=== PATIENT | male | born 1940 | race Caucasian/White ===

== ENCOUNTER → 2017-08-07 | Outpatient (CLI) | payer MEDICARE, BC ==
--- NOTE | 2017-08-07 12:59 | MR ---
EXAMINATION TYPE: MR shoulder LT wo con DATE OF EXAM: 08/07/2017 COMPARISON: NONE HISTORY: left shoulder pain TECHNIQUE: Multiplanar, multisequence imaging of the left shoulder is performed without contrast. FINDINGS: Rotator Cuff: Postop changes are present, susceptibility artifact is present about the left shoulder. There is a full-thickness tear present supraspinatus tendon with retraction to the level of the acro mion. Infraspinatus tendon shows abnormal loss of thickness, fluid signal is present, the tendon appe ars attenuated fluid signal courses back along the musculotendinous junction Acromioclavicular Joint: Arthropathy of the acromioclavicular joint causes mass effect on the musculo tendinous junction of supraspinatus Glenohumeral Joint: Suspect some arthropathy changes. Labrum: Some linear increased signal present at the posterior aspect of the inferior portion of the g lenoid labrum is noted, axial image 9 and 10, difficult to exclude a labral tear, there is some local fluid present Biceps Tendon: Fluid signal is present along the long head of biceps tendon shows a normal position i n the bicipital groove Bone marrow signal: Abnormal marrow signal at the site of patient's prior surgery within the humeral head. Other: The acromion shows an irregular appearance possibly due to prior surgery IMPRESSION: Postop change with recurrent full-thickness supraspinatus tendon tear with retraction, additional fin dings above. Difficult to exclude a labral tear.
== END | disposition home or self-care (01) ==
LOC: RADMRIMAIN 08:50
PROVIDERS: ATTEND Internal Medicine
DX: M75.102 Unspecified rotator cuff tear or rupture of left shoulder, not specified as traumatic (principal); M12.812 Other specific arthropathies, not elsewhere classified, left shoulder; Z98.890 Other specified postprocedural states

== ENCOUNTER 2017-12-29 07:51 | Emergency (ER) | payer OTHER, MEDICARE, BC ==
[2017-12-29] MEDS ORDERED: DIPH,PERTUS(ACELL)TETVAC-LF 0.5 ML VIAL IM ONE (08:07)
[2017-12-29 08:08] VITALS: TEMP 97.7
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
[2017-12-29 09:15] VITALS: PULSE 69; RESP 18
[2017-12-29] MEDS ORDERED: HYDROmorphone 1 MG/ML 1 ML SYRINGE IVP STA ×2 (09:35→12:48)
[2017-12-29] MEDS ORDERED: ONDANSETRON 4 MG/2 ML VIAL IVP STA ×2 (09:35→13:09)
[2017-12-29 11:31] LABS: Partial Thromboplastin Time 22.1 sec (22.0-30.0); Prothrombin Time 10.2 sec (9.0-12.0)
[2017-12-29 11:33] LABS: ALT 53 U/L (21-72); AST 43 U/L (17-59); Albumin 3.9 g/dL (3.5-5.0); Alkaline Phosphatase 68 U/L (38-126); Anion Gap 8 mmol/L; Blood Urea Nitrogen 27 mg/dL (9-20); Calcium 9.2 mg/dL (8.4-10.2); Carbon Dioxide 25 mmol/L (22-30); Chloride 106 mmol/L (98-107); Glucose 151 mg/dL (74-99); Potassium 4.5 mmol/L (3.5-5.1); Sodium 139 mmol/L (137-145); Total Bilirubin 0.5 mg/dL (0.2-1.3); Total Protein 6.6 g/dL (6.3-8.2)
[2017-12-29 11:37] LABS: Basophils % (A) 0 %; Eosinophils % (A) 0 %; Lymphocytes # (A) 0.7 k/uL (1.0-4.8); Lymphocytes % (A) 4 %; MCH 33.4 pg (25.0-35.0); MCHC 34.2 g/dL (31.0-37.0); MCV 97.8 fL (80.0-100.0); Mean Platelet Volume 6.9; Monocytes # (A) 0.6 k/uL (0-1.0); Monocytes % (A) 4 %; Neutrophils # (A) 14.2 k/uL (1.3-7.7); Neutrophils % (A) 91 %; Platelet Count 230 k/uL (150-450); RDW 12.6 % (11.5-15.5); WBC 15.5 k/uL (3.8-10.6)
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
[2017-12-29 12:27] VITALS: BP 130/74
== END 2017-12-29 13:21 | disposition short-term general hospital (02) ==
LOC: EC 07:51
DX: S32.401A Unspecified fracture of right acetabulum, initial encounter for closed fracture (principal); S01.01XA Laceration without foreign body of scalp, initial encounter; M19.90 Unspecified osteoarthritis, unspecified site; Z87.891 Personal history of nicotine dependence; Z88.5 Allergy status to narcotic agent; Z79.82 Long term (current) use of aspirin; Z79.899 Other long term (current) drug therapy; Z96.649 Presence of unspecified artificial hip joint; Z23 Encounter for immunization; V49.49XA Driver injured in collision with other motor vehicles in traffic accident, initial encounter; Y92.410 Unspecified street and highway as the place of occurrence of the external cause
CPT/HCPCS: 36415; 80053; 85025; 85610; 85730; 73502; 71045; 72192; 72125; 70450; 71250; 90715; 99285; 96374; 96375; 96376 ×2; 90471; J2405; J1170

== ENCOUNTER 2018-01-14 09:50 | Day surgery (SDC) | payer BC, MEDICARE, OTHER ==
[2018-01-13 09:46] VITALS: BMI 25.7
[~2018-01-14 09:50] MED LIST: DEXAMETHASONE SOD PHOSPHATE 4 MG/ML 1 ML VIAL IV ONE; FAMOTIDINE 20 MG/2 ML VIAL IV ONE; HYDROmorphone 1 MG/ML 1 ML SYRINGE IVP PRN; LACTATED RINGERS 1,000 ML IV SCH; ONDANSETRON 4 MG/2 ML VIAL IVP ONE; ceFAZolin 1,000 MG in DEXTROSE/WATER 1 50ML.BAG IV ONE
[2018-01-14] MEDS: OXYMETAZOLINE 0.05% NASL SPRAY 1 SPRAY BOTTLE NASAL ONE ×5 (11:10→11:30)
[2018-01-14] MEDS ORDERED: DEXAMETHASONE SOD PHOS (MDV) 100 MG/10 ML VIAL ONE (12:00)
[2018-01-14] MEDS ORDERED: fentaNYL (PF) 50 MCG/ML 2 ML AMP ONE (12:00)
[2018-01-14] MEDS ORDERED: LIDOCAINE 1% INJ 10MG/ML (20 ML MDV) ONE (12:00)
[2018-01-14] MEDS ORDERED: MIDAZOLAM 2 MG/2 ML VIAL ONE (12:00)
[2018-01-14] MEDS ORDERED: SUCCINYLCHOLINE CHLORIDE VIAL 200 MG/10 ML VIAL IV ONE (12:00)
[2018-01-14] MEDS ORDERED: ePHEDrine SULFATE/0.9% NACL/PF 50 MG/5 ML SYRINGE IV ONE (12:00)
[2018-01-14] MEDS ORDERED: PROPOFOL 10 MG/ML 20 ML VIAL IV ONE (12:00)
[2018-01-14] MEDS ORDERED: LIDOCAINE 1%-EPI 1:100,000 30 ML VIAL SUBMUCOSAL ONE ×2 (12:20)
[2018-01-14] MEDS ORDERED: BACITRACIN OINT 1 EACH PACKET TOPICAL ONE (12:35)
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
[2018-01-14 13:04] VITALS: TEMP 97.9
[2018-01-14 13:32] VITALS: RESP 18
[2018-01-14 14:36] VITALS: BP 128/79; PULSE 67
== END 2018-01-14 15:09 | disposition home or self-care (01) ==
LOC: OR 09:50
PROVIDERS: ATTEND Otolaryngology
DX: J34.2 Deviated nasal septum (principal); S02.2XXA Fracture of nasal bones, initial encounter for closed fracture; V89.2XXA Person injured in unspecified motor-vehicle accident, traffic, initial encounter; S32.9XXD Fracture of unspecified parts of lumbosacral spine and pelvis, subsequent encounter for fracture with routine healing; S82.009D Unspecified fracture of unspecified patella, subsequent encounter for closed fracture with routine healing; V89.2XXD Person injured in unspecified motor-vehicle accident, traffic, subsequent encounter; I10 Essential (primary) hypertension; K21.9 Gastro-esophageal reflux disease without esophagitis; Z79.01 Long term (current) use of anticoagulants; Z79.891 Long term (current) use of opiate analgesic; Z79.899 Other long term (current) drug therapy; Z88.5 Allergy status to narcotic agent; Z87.891 Personal history of nicotine dependence
CPT/HCPCS: 88300; 30520; 21320; J2250; J0330; J1100 ×2; J2405; J2001; J3010; J0690; J2704

== ENCOUNTER → 2018-12-28 | Outpatient (CLI) | payer MEDICARE, BC ==
--- NOTE | 2018-12-28 10:35 | XR ---
EXAMINATION TYPE: XR chest 2V DATE OF EXAM: 12/28/2018 COMPARISON: 12/29/2017 HISTORY: Prostate cancer.. TECHNIQUE: Frontal and lateral views of the chest are obtained. FINDINGS: There is no focal air space opacity, pleural effusion, or pneumothorax seen. Moderate mult ilevel degenerative changes of the spine. Chronic left basilar subsegmental atelectasis. The cardiac silhouette size is within normal limits. The osseous structures are intact. Postsurgical changes of the shoulders from prior rotator cuff repair. IMPRESSION: No acute cardiopulmonary process.
--- NOTE | 2018-12-28 12:56 | XR ---
EXAMINATION TYPE: XR lumbosacral spine min 4V DATE OF EXAM: 12/28/2018 CLINICAL HISTORY: Low back pain with history of prostate cancer TECHNIQUE: Frontal, lateral, and oblique images of the lumbar spine are obtained. COMPARISON: None FINDINGS: Multilevel facet arthropathy is seen with intervertebral disc space narrowing and small ant erior osteophytes. Alignment is maintained other than a grade 1 anterolisthesis of L4 on L5, 2 mm of anterolisthesis. Postsurgical changes are partially visualized of the hips and sacroiliac joints. Obl ique images demonstrate neural foraminal narrowing on the left at L1-L2, L2-L3, and L3-L4 as well as on the right at L2-L3, L3-4 and L4-5. The pedicles of L1 and L2 appear slightly hyperdense and in thi s patient with a history of prostate cancer nuclear medicine bone scan is recommended. IMPRESSION: 1. No acute fracture is seen in the lumbar spine. 2. Slightly hyperdense pedicles of L1 and L2. In this patient with a history of prostate cancer nucle ar medicine bone scan is recommended. 3. Advanced multilevel degenerative disc disease of the lumbar spine with grade 1 anterolisthesis of L4 on L5, likely on a degenerative basis.
--- NOTE | 2018-12-28 13:07 | XR ---
EXAMINATION TYPE: XR thoracic spine complete DATE OF EXAM: 12/28/2018 CLINICAL HISTORY: Back pain. History of prostate cancer. TECHNIQUE: Frontal, lateral, and swimmer's view of thoracic spine are obtained. COMPARISON: None. FINDINGS: Thoracic spine show satisfactory alignment without evidence of acute fracture or dislocatio n. Vertebral body heights are preserved. Intervertebral disc space narrowing is seen at multiple lev els with multilevel anterior osteophytes and endplate sclerosis. There is a question mild compression deformity of T11 vertebral obliquity from slight dextroscoliotic curvature of the thoracic spine. Ve rtebral body height loss would be approximately 10%. Visualized ribs are unremarkable. IMPRESSION: 1. Question very mild compression deformity of T11. Correlate with point tenderness. If clinical exam is equivocal MRI could be performed to evaluate for bone marrow edema. 2. Moderate degenerative disc disease of the lumbar spine and slight dextro scoliosis.
--- NOTE | 2018-12-28 16:03 | XR ---
EXAMINATION TYPE: XR abdomen complete w decub DATE OF EXAM: 12/28/2018 COMPARISON: NONE HISTORY: Low back pain, prostate cancer, abdominal pain TECHNIQUE: Supine, upright, and decubitus views of the abdomen were obtained FINDINGS: Prominent loop of centralized small bowel is mildly enlarged measuring 3.6 cm. Prominent va lvulae conniventes a in the mid left abdomen and left lower quadrant. Moderate degree colonic fecal s tasis. Remainder of the loops of bowel remain nondilated. Fecal stasis is seen within the rectum. Pos tsurgical changes of the right hip and pelvis are noted. Generalized osseous demineralization and deg enerative changes of the osseous structures. Lung bases are well aerated. No pneumoperitoneum. On the upright view of the previously seen mildly dilated loop of small bowel appears transient. IMPRESSION: Moderate degree colonic fecal stasis and overall ileus.
== END | disposition home or self-care (01) ==
LOC: RADXRMAIN 09:14
PROVIDERS: ATTEND Internal Medicine
DX: M43.16 Spondylolisthesis, lumbar region (principal); M51.36 Other intervertebral disc degeneration, lumbar region; K59.8 Other specified functional intestinal disorders; Z85.46 Personal history of malignant neoplasm of prostate
CPT/HCPCS: 71046; 72072; 72110; 74021

== ENCOUNTER → 2018-12-30 | Outpatient (CLI) | payer MEDICARE, BC ==
--- NOTE | 2018-12-30 16:44 | NM ---
EXAMINATION TYPE: NM bone scan whole body DATE OF EXAM: 12/30/2018 COMPARISON: NONE HISTORY: Back pain, Z 85.46 Delayed whole-body scanning was performed following the injection of 24.0 mCi Tc 99m MDP. Images wer e acquired 3 hours post injection. FINDINGS: There is some focal increased radiotracer accumulation within the left posterior T12 pedicle, the jamil ateral T11 pedicles, the right posterior T10 pedicle. Consider MRI for additional evaluation of this region. Some uptake is at the sternoclavicular junctions likely degenerative in nature. Some mild increased u ptake is at the bilateral acetabulum likely related to some degenerative change. Photopenic defects a t the right hip compatible with a prosthesis. IMPRESSION: 1. Mild uptake within the lower thoracic spine pedicles. Additional evaluation with plain films is re commended. If this is inconclusive, consider MRI for additional evaluation.
== END | disposition home or self-care (01) ==
LOC: RADNMMAIN 10:21
PROVIDERS: ATTEND Internal Medicine
DX: M54.5 Low back pain (principal); Z85.46 Personal history of malignant neoplasm of prostate
CPT/HCPCS: 78306; A9503

== ENCOUNTER 2018-12-31 09:42 | Day surgery (SDC) | payer MEDICARE, BC ==
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
[2018-12-29 16:06] VITALS: BMI 25.0
[~2018-12-31 09:42] MED LIST changes: +DEXAMETHASONE SOD PHOSPHATE 10 MG/ML 1 ML VIAL IV ONE; -DEXAMETHASONE SOD PHOSPHATE 4 MG/ML 1 ML VIAL IV ONE; -FAMOTIDINE 20 MG/2 ML VIAL IV ONE; +HYDROmorphone 0.5 MG/0.5 ML SYRINGE IVP PRN; -HYDROmorphone 1 MG/ML 1 ML SYRINGE IVP PRN; -ceFAZolin 1,000 MG in DEXTROSE/WATER 1 50ML.BAG IV ONE
[2018-12-31] MEDS ORDERED: LACTATED RINGERS 1,000 ML IV ONE (10:08)
[2018-12-31] MEDS ORDERED: LIDOCAINE 1% 20 ML VIAL (10MG/ML) FOR IV START INTRADERMA ONE (10:10)
[2018-12-31] MEDS ORDERED: LIDOCAINE 1% INJ 10MG/ML (20 ML MDV) ONE (11:47)
[2018-12-31] MEDS ORDERED: PROPOFOL 10 MG/ML 20 ML VIAL IV ONE (11:47)
[2018-12-31] MEDS ORDERED: fentaNYL (PF) 50 MCG/ML 2 ML AMP ONE (11:47)
[2018-12-31] MEDS ORDERED: MIDAZOLAM 2 MG/2 ML VIAL ONE (11:47)
[2018-12-31] MEDS ORDERED: LIDOCAINE 2% INJ 20 MG/ML SQ ONE ×3 (12:07→12:19)
[2018-12-31 12:46] VITALS: TEMP 97.4
[2018-12-31 13:03] VITALS: RESP 16
[2018-12-31 13:58] VITALS: BP 143/77; PULSE 54
--- NOTE | 2018-12-31 19:46 | P.OP ---
Date of Procedure: 12/31/18 Preoperative Diagnosis: prostate cancer Postoperative Diagnosis: same Procedure(s) Performed: Transrectal ultrasound and SpaceOaR placement Implants: SPacerOaR gel Anesthesia: DANETTEA Surgeon: Sid Jin Estimated Blood Loss (ml): 5 Condition: stable Disposition: PACU Indications for Procedure: Mr. Chavis is a 78-year-old male with history of Antonio 10 prostate cancer, he elected to proceed with external beam radiation. Placement of SpaceOaR was discussed with the patient to minimize rectal toxicity. He agreed to proceed with the procedure. I discussed with him the risk of bleeding infection and injury to nearby organs. I also discussed the risk of anesthesia with him. He understood all the risks and agreed to proceed with the procedure Operative Findings: good separation between between Denovillers fascia the rectum Description of Procedure: The patient was taken to the operating room and placed in the dorsolithotomy position, with his legs supported in Jonas stirrups. The external genitalia was prepped and draped sterilely. The BK transrectal ultrasound probe was placed intrarectally. The prostate was imaged. The probe was then placed within the stabilizing stand. A spinal needle was advanced under ultrasonic guidance to the level of the urogenital diaphragm, and lidocaine was used to infiltrate the tissues as the needle was withdrawn. Next, the SpaceOAR needle was passed through the midline of the perineum, 1-2 cm anterior to the anal opening. The needle was slowly advanced under ultrasonic guidance until the needle tip was located within the fat plane between the prostate and rectum, at the level of the mid prostate gland. The needle was confirmed to be midline on the axial imaging. A small amount of normal saline was injected for hydrodissection. Next, the SpaceOAR components were mixed and loaded into the Y connector per protocol. The Y connector was then connected to the needle, and the components were injected slowly over a course of approximately 12 seconds. A total of 10 ml was injected. Significant distance was created between the prostate and rectum, as desired. It should be noted that at no point was there any concern of rectal perforation. The needle was withdrawn, as well as the transrectal ultrasound probe, and the procedure was terminated. The patient tolerated the procedure well and was taken to the recovery room in stable condition.
== END 2018-12-31 14:06 | disposition home or self-care (01) ==
LOC: OR 09:42
PROVIDERS: ATTEND Urology
DX: C61 Malignant neoplasm of prostate (principal); N40.0 Benign prostatic hyperplasia without lower urinary tract symptoms; I10 Essential (primary) hypertension; F41.9 Anxiety disorder, unspecified; M19.90 Unspecified osteoarthritis, unspecified site; Z96.641 Presence of right artificial hip joint; Z98.41 Cataract extraction status, right eye; Z98.890 Other specified postprocedural states; Z87.891 Personal history of nicotine dependence; Z79.899 Other long term (current) drug therapy; Z88.5 Allergy status to narcotic agent
CPT/HCPCS: 55874; J2001 ×2; J2250; J1100; J0690; J2405; J3010; J2704

== ENCOUNTER → 2019-01-13 | Outpatient (CLI) | payer MEDICARE, BC ==
--- NOTE | 2019-01-13 23:39 | MR ---
EXAMINATION TYPE: MR thoracic spine wo/w con DATE OF EXAM: 01/13/2019 COMPARISON: None HISTORY: Mid back pain, Abnoramal Bone Scan, Prostate Ca CONTRAST: Standard multiplanar, multisequence MRI departmental protocol utilizing 7.5 mL intravenous Gadavist g adolinium contrast. FINDINGS: The thoracic vertebra have fairly normal alignment. There is no compression fracture. There is no significant disc space narrowing. There is no thoracic paraspinal mass. On the T1 and T2 image s there is increased signal in T9 and T10 vertebra that probably relates to fatty marrow replacement. I see no definite pathologic enhancement. There is no pathologic disc enhancement. Thoracic spinal cord has normal signal pattern. There is no edema. There is posterior mild cervical d isc herniation and spur formation at C4-5. There is adequate spinal canal and no significant spinal s tenosis. IMPRESSION: Findings are consistent with some variable fatty marrow replacement. I do not see evidence of metasta tic disease. Mild spondylotic changes in the thoracic and cervical spine. There is hypertrophic right side lateral bridging osteophyte formation in the mid thoracic spine.
== END | disposition home or self-care (01) ==
LOC: RADMRIMAIN 20:05
PROVIDERS: ATTEND Internal Medicine
DX: M47.814 Spondylosis without myelopathy or radiculopathy, thoracic region (principal); M25.78 Osteophyte, vertebrae
CPT/HCPCS: 72157; A9585

== ENCOUNTER → 2019-02-18 | Outpatient (CLI) | payer MEDICARE, BC | END | disposition home or self-care (01) | LOC: LABWHC1 08:29 | PROVIDERS: ATTEND Radiology Radiation Oncology | DX: C61 Malignant neoplasm of prostate (principal); Z87.891 Personal history of nicotine dependence; Z79.818 Long term (current) use of other agents affecting estrogen receptors and estrogen levels | CPT/HCPCS: 36415; 84153 ==

== ENCOUNTER → 2019-08-25 | Outpatient (CLI) | payer MEDICARE, BC ==
--- NOTE | 2019-08-25 14:14 | NM ---
EXAMINATION TYPE: NM bone scan whole body DATE OF EXAM: 08/25/2019 COMPARISON: MRI 12/27/2018, bone scan 12/30/2018 HISTORY: Pain, prostate cancer Delayed whole-body scanning was performed following the injection of 22.8 mCi Tc 99m MDP. Images acq uired 3 hours post injection. FINDINGS: There is uptake involving the shoulders, knees and feet likely post arthritic. Photopenic defect righ t hip suggestive of previous surgery. Faint uptake throughout the thoracic spine and lower lumbar spine likely degenerative. Some uptake is at the sternoclavicular junctions likely degenerative in nature. There is mild increased uptake is at the bilateral acetabulum likely related to some degenerative daysi nge. Photopenic defects at the right hip compatible with a prosthesis. IMPRESSION: 1. Mild intensity uptake within the vertebral column again noted most likely degenerative.
== END | disposition home or self-care (01) ==
LOC: RADNMMAIN 09:44
PROVIDERS: ATTEND Internal Medicine
DX: C61 Malignant neoplasm of prostate (principal)
CPT/HCPCS: 78306; A9503

== ENCOUNTER → 2021-05-24 | Outpatient (CLI) | payer MEDICARE, BC ==
--- NOTE | 2021-05-24 14:27 | ECHOS ---
STRESS ECHOCARDIOGRAM INDICATIONS: Hyperhidrosis BASELINE HEART RATE: 93 BASELINE BLOOD PRESSURE: 133/80 MAXIMUM HEART RATE: 150 MAXIMUM BLOOD PRESSURE: 193/89 85% MPHR: 118 100% MPHR: 139 METS: 4.4 MAXIMUM STAGE REACHED: II TOTAL EXERCISE TIME: 4:09 RESULTS: Baseline EKG revealed normal sinus rhythm without significant ST-T changes. Patient walked on standard Arley protocol for 4 minutes 9 seconds, achieved a maximal heart rate of 150 beats per minute which is well above 85% of predicted maximal. He developed fatigue and shortness of breath but did not have angina. EKG did not reveal any ST-segment changes to indicate ischemia. By EKG criteria, this is a negative stress test with limited exercise capacity. Baseline echo images revealed normal wall motion and wall thickening of all segments. At peak exercise, there was good augmentation of left ventricular wall motion and wall thickening of all segments, suggesting that there is no evidence of stress-induced ischemia on this study. FINAL IMPRESSION: 1. Limited exercise capacity with a negative stress test by EKG criteria. 2. Normal stress echocardiogram without evidence of ischemia. MMODL / IJN: [id number] /
== END | disposition home or self-care (01) ==
LOC: RADNMMAIN 08:57
PROVIDERS: ATTEND Internal Medicine
DX: R61 Generalized hyperhidrosis (principal)
CPT/HCPCS: 93351

== ENCOUNTER 2022-01-21 17:14 | Emergency (ER) | payer OTHER, MEDICARE, BC ==
[2022-01-21 17:23] VITALS: TEMP 98
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
[2022-01-21] MEDS ORDERED: HYDROcodone/APAP 7.5-325MG 1 EACH TAB PO ONE (19:01)
[2022-01-21] MEDS ORDERED: GELATIN SPONGE,ABSORB (SMALL) 1 EACH SPONGE TOPICAL STA (19:12)
[2022-01-21] MEDS ORDERED: GELATIN SPONGE,ABSORB (LARGE) 1 EACH SPONGE TOPICAL STA (19:12)
[2022-01-21] MEDS ORDERED: DIPH,PERTUS(ACELL)TETVAC-LF 0.5 ML VIAL IM ONE (19:14)
[2022-01-21 20:17] VITALS: BP 147/82; PULSE 94; RESP 18
== END 2022-01-21 20:17 | disposition home or self-care (01) ==
LOC: EC 17:14
DX: R07.82 Intercostal pain (principal); Z23 Encounter for immunization; I10 Essential (primary) hypertension; M19.90 Unspecified osteoarthritis, unspecified site; F41.9 Anxiety disorder, unspecified; Z88.5 Allergy status to narcotic agent; Z79.899 Other long term (current) drug therapy; V49.50XA Passenger injured in collision with unspecified motor vehicles in traffic accident, initial encounter
CPT/HCPCS: 70450; 71250; 72125; 74176; 90471; 90715; 99284

== ENCOUNTER 2022-03-15 23:17 | Observation (INO) | payer MEDICARE, BC ==
[2022-03-16] MEDS ORDERED: ACETAMINOPHEN IV (For NPO) 1,000 MG in SALINE 100 100ML.BAG IVPB STA (01:34)
[2022-03-16 01:55] LABS: Basophils % (A) 0 %; Eosinophils # (A) 0.2 k/uL (0-0.7); Eosinophils % (A) 3 %; HCT 36.9 % (39.0-53.0); HGB 13.1 gm/dL (13.0-17.5); Lymphocytes # (A) 0.6 k/uL (1.0-4.8); Lymphocytes % (A) 12 %; MCH 34.7 pg (25.0-35.0); MCHC 35.6 g/dL (31.0-37.0); MCV 97.6 fL (80.0-100.0); Mean Platelet Volume 7.3; Monocytes # (A) 0.4 k/uL (0-1.0); Monocytes % (A) 7 %; Neutrophils # (A) 4.1 k/uL (1.3-7.7); Neutrophils % (A) 76 %; Platelet Count 253 k/uL (150-450); RBC 3.78 m/uL (4.30-5.90); RDW 12.5 % (11.5-15.5); WBC 5.4 k/uL (3.8-10.6)
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
[2022-03-16 02:15] LABS: ALT 22 U/L (4-49); AST 24 U/L (17-59); African American GFR (CKD) >90 (>60 ml/min/1.73 sqM); Albumin 4.1 g/dL (3.5-5.0); Alkaline Phosphatase 116 U/L (38-126); Anion Gap 7 mmol/L; Blood Urea Nitrogen 21 mg/dL (9-20); C Reactive Protein 0.5 mg/dL (<1.0); Calcium 9.1 mg/dL (8.4-10.2); Carbon Dioxide 24 mmol/L (22-30); Chloride 108 mmol/L (98-107); Glucose 127 mg/dL (74-99); Non-African American GFR(CKD) >90 (>60 ml/min/1.73 sqM); Potassium 4.2 mmol/L (3.5-5.1); Sodium 139 mmol/L (137-145); Total Bilirubin 0.6 mg/dL (0.2-1.3); Total Protein 6.7 g/dL (6.3-8.2)
[2022-03-16] MEDS ORDERED: MORPHINE SULFATE 4 MG/ML SYRINGE IV STA (03:08)
[2022-03-16] MEDS ORDERED: ONDANSETRON 4 MG/2 ML VIAL IVP STA (03:08)
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
[2022-03-16] MEDS ORDERED: MORPHINE SULFATE 4 MG/ML SYRINGE IV PRN (04:08)
[2022-03-16] MEDS ORDERED: ONDANSETRON 4 MG/2 ML VIAL IVP PRN (04:08)
[2022-03-16] MEDS ORDERED: NALOXONE 0.4 MG/ML 1 ML VIAL IV PRN (04:08)
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
[2022-03-16 07:35] VITALS: RESP 16
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
[2022-03-16] MEDS ORDERED: DEXAMETHASONE SOD PHOSPHATE 10 MG/ML 1 ML VIAL IVP STA (08:35)
[2022-03-16] MEDS: HEPARIN SODIUM,PORCINE/PF 5,000 UNIT/0.5 ML SYRINGE SQ SCH ×2 (09:04→17:50)
[2022-03-16 15:22] VITALS: BP 135/72; PULSE 84; TEMP 97.9
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
== END 2022-03-16 15:37 | disposition left against medical advice (07) ==
LOC: EC 23:17 → 6NMEDSUR 03-16 04:10
PROVIDERS: ADMIT Internal Medicine; ATTEND Internal Medicine
DX: S32.040A Wedge compression fracture of fourth lumbar vertebra, initial encounter for closed fracture (principal); S32.050A Wedge compression fracture of fifth lumbar vertebra, initial encounter for closed fracture; G93.40 Encephalopathy, unspecified; M54.10 Radiculopathy, site unspecified; I10 Essential (primary) hypertension; M48.061 Spinal stenosis, lumbar region without neurogenic claudication; F41.9 Anxiety disorder, unspecified; M47.816 Spondylosis without myelopathy or radiculopathy, lumbar region; M16.12 Unilateral primary osteoarthritis, left hip; N40.0 Benign prostatic hyperplasia without lower urinary tract symptoms; Z79.899 Other long term (current) drug therapy; Z88.5 Allergy status to narcotic agent; Z96.641 Presence of right artificial hip joint; Z98.41 Cataract extraction status, right eye; Z80.9 Family history of malignant neoplasm, unspecified; Z53.29 Procedure and treatment not carried out because of patient's decision for other reasons; V49.50XA Passenger injured in collision with unspecified motor vehicles in traffic accident, initial encounter
CPT/HCPCS: 96372; 96375 ×2; 96374; 99285; 36415; 80053; 85025; 86140; 72192; 72131; G0378; J2270; J1100; J2405; J0131; J1644

== ENCOUNTER → 2022-03-18 | Outpatient (CLI) | payer MEDICARE, BC ==
--- NOTE | 2022-03-18 16:45 | MR ---
EXAMINATION TYPE: MR lumbar spine wo con DATE OF EXAM: 03/18/2022 3:45 PM COMPARISON: CT lumbar spine 03/16/[address] 01/21/2022. CLINICAL INDICATION:Male, 82 years old with history of M54.50 Low back pain; TECHNIQUE: Multi planar, multi sequence imaging was performed utilizing: T1-weighted, T2-weighted, a nd turbo inversion recovery imaging of the lumbar spine. IV Contrast: None. FINDINGS: Alignment: The lumbar vertebral bodies have preserved heights and alignment. Cord: The conus medullaris and the distal spinal cord appear unremarkable with regards to their signa l intensity and morphology. Bones/Discs: Acute/subacute fracture of the L5 vertebrae with at least 25-50% height loss which has p rogressed from 01/21/2022 and is similar 03/16/2022. High inversion recovery signal is seen within the L5 vertebrae with curvilinear low T1/T2 signal present in extending to the endplates. L4 vertebrae a lso demonstrates increase her recovery signal with curvilinear low T1/T2 signal within the L4 vertebr al body inferior anterior aspect with associated increased inversion recovery signal. Postsurgical ch anges to the sacrum. Mild retropulsion at L5 and no significant retropulsion at the L4. Scattered osteophyte formation throughout the visualized spine with facet joint arthropathy T12-L1: The disc is rounded posterior morphology without significant spinal canal stenosis. Facet mera nt arthropathy with mild neural foraminal stenosis. L1-L2: The disc is rounded posterior morphology without significant spinal canal stenosis. Facet join t arthropathy with mild neural foraminal stenosis. L2-L3: Disc bulge and facet joint arthropathy result in mild spinal canal and mild bilateral neural f oraminal stenosis. L3-L4: Disc bulge and facet joint arthropathy result in moderate spinal canal and moderate to severe bilateral neural foraminal stenosis. L4-L5: Compression fracture with retropulsion along with facet joint arthropathy results in severe sp inal canal stenosis. There is also moderate bilateral neural foraminal stenosis. L5-S1: Limited evaluation at this level secondary to metallic artifact on axial imaging. The disc is rounded posterior morphology without significant spinal canal stenosis. Facet joint arthropathy with moderate bilateral neural foraminal stenosis. Other findings: Peripelvic renal cysts are present. IMPRESSION: 1. Acute/subacute fracture of the L5 vertebrae with at least 25-50% height loss which has progressed from 01/21/2022 and is similar 03/16/2022. 2. Retropulsion at L4-L5 from the acute subacute fracture mentioned in #1 results in severe spinal c anal stenosis. 3. Acute/subacute fracture of the L4 vertebrae with 25% height loss progressed from 01/21/2022 and si milar to 03/16/2022. 4. Multilevel disc degeneration changes with moderate bilateral neural foraminal stenosis at L3-L4, L4-5 and L5-S1.
== END | disposition home or self-care (01) ==
LOC: RADMRIMAIN 14:48
PROVIDERS: ATTEND Internal Medicine
DX: S32.059A Unspecified fracture of fifth lumbar vertebra, initial encounter for closed fracture (principal); S32.049A Unspecified fracture of fourth lumbar vertebra, initial encounter for closed fracture; M51.36 Other intervertebral disc degeneration, lumbar region; M48.061 Spinal stenosis, lumbar region without neurogenic claudication; M99.73 Connective tissue and disc stenosis of intervertebral foramina of lumbar region; M47.816 Spondylosis without myelopathy or radiculopathy, lumbar region; M51.37 Other intervertebral disc degeneration, lumbosacral region
CPT/HCPCS: 72148

== ENCOUNTER → 2022-03-27 | Outpatient (CLI) | payer MEDICARE, BC ==
[2022-03-28] LABS: African American GFR (CKD) 99.2 (60.0-200.0); BUN/Creat Ratio 19.54 Ratio (12.00-20.00); Blood Urea Nitrogen 14.6 mg/dL (9.0-27.0); Calcium 9.7 mg/dL (8.7-10.3); Carbon Dioxide 22.7 mmol/L (20.0-27.5); Non-African American GFR(CKD) 85.6 (60.0-200.0); Potassium 4.1 mmol/L (3.5-5.5)
[2022-03-28 00:04] LABS: INR 0.92 (0.90-1.11); Prothrombin Time 10.4 sec (9.9-11.9)
== END | disposition home or self-care (01) ==
LOC: LABPAT 15:41
PROVIDERS: ATTEND Orthopaedic Surgery
DX: Z01.812 Encounter for preprocedural laboratory examination (principal); S32.05 Fracture of fifth lumbar vertebra; S32.040A Wedge compression fracture of fourth lumbar vertebra, initial encounter for closed fracture; M48.061 Spinal stenosis, lumbar region without neurogenic claudication; Z22.322 Carrier or suspected carrier of Methicillin resistant Staphylococcus aureus; X58.XXXA Exposure to other specified factors, initial encounter
CPT/HCPCS: 80048; 85025; 85610; 86850; 86900; 86901; 87070; 93005

== ENCOUNTER → 2022-03-28 | Outpatient (CLI) | payer MEDICARE, BC ==
[2022-03-28 18:42] LABS: Basophils # (A) 0.03 X 10*3/uL (0.00-0.10); Basophils % (A) 0.6 %; Eosinophils # (A) 0 X 10*3/uL (0.04-0.35); Eosinophils % (A) 0 %; HCT 39.1 % (39.6-50.0); HGB 13.1 g/dL (13.0-17.0); Immature Grans, Automated 0.2 %; Lymphocytes # (A) 0.55 X 10*3/uL (0.90-5.00); Lymphocytes % (A) 11.6 %; MCH 34.2 pg (27.0-32.0); MCHC 33.5 g/dL (32.0-37.0); MCV 102.1 fL (80.0-97.0); Mean Platelet Volume 10.2 fL (9.5-12.2); Monocytes # (A) 0.46 X 10*3/uL (0.20-1.00); Monocytes % (A) 9.7 %; NRBC Per 100 WBC 0 /100 WBCS (0.0-0.0); Neutrophils # (A) 3.69 X 10*3/uL (1.80-7.70); Neutrophils % (A) 77.9 %; Platelet Count 264 X 10*3/uL (140-440); RBC 3.83 X 10*6/uL (4.40-5.60); RDW 12.5 % (11.5-14.5); WBC 4.74 X 10*3/uL (4.50-10.00)
== END | disposition home or self-care (01) ==
LOC: LABPAT 11:25
PROVIDERS: ATTEND Orthopaedic Surgery
DX: Z01.812 Encounter for preprocedural laboratory examination (principal); Z22.322 Carrier or suspected carrier of Methicillin resistant Staphylococcus aureus; S32.05 Fracture of fifth lumbar vertebra; S32.040A Wedge compression fracture of fourth lumbar vertebra, initial encounter for closed fracture; M48.061 Spinal stenosis, lumbar region without neurogenic claudication; X58.XXXA Exposure to other specified factors, initial encounter
CPT/HCPCS: 85025

== ENCOUNTER 2022-04-02 06:07 | Day surgery (SDC) | payer OTHER, MEDICARE, BC ==
[2022-03-29 15:59] VITALS: BMI 25.1
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
[~2022-04-02 06:07] MED LIST changes: +ACETAMINOPHEN TAB 500 MG TAB PO PRN; -DEXAMETHASONE SOD PHOSPHATE 10 MG/ML 1 ML VIAL IV ONE; +DEXAMETHASONE SOD PHOSPHATE 4 MG/ML 1 ML VIAL IV ONE; +GABAPENTIN 300 MG CAP PO PRN; -HYDROmorphone 0.5 MG/0.5 ML SYRINGE IVP PRN; -LACTATED RINGERS 1,000 ML IV SCH; +LIDOCAINE 1% (10MG/ML) FOR IV START INTRADERMA PRN; +MIDAZOLAM 2 MG/2 ML VIAL IV PRN; -ONDANSETRON 4 MG/2 ML VIAL IVP ONE; +ONDANSETRON 4 MG/2 ML VIAL IVP PRN; +TRANEXAMIC ACID IN NACL,ISO-OS 1,000 MG in SALINE 1 100ML.BAG IVPB PRN
[2022-04-02] MEDS: LACTATED RINGERS 1,000 ML IV SCH (06:50)
--- NOTE | 2022-04-02 06:56 | P.PN ---
Progress Note - Text Progress Note Date: 04/02/22 Spoke with and pt this AM. H&P updated. Discussed the procedure. They have decided with their family that they do not want the larger procedure and just want to proceed with the L5 kyphoplasty. This is reasonable. I discussed with them again that this will not at all address his instability, stenosis, radiculopathy or other issues of his low back but simply address the L5 vertebral body and whatever pain is coming from this area. They understand. I reiterated that in a fracture like this, Stability is preferred with screws and we can do it minimally invasive. They understand and still do not want this at this time. We discussed all the risks and benefits of this decision at length including the need for more surgery, continued pain, instability and further deterioration of his neurological status and they understand and are willing to assume these risks as well as all of the other risks of surgery.
[2022-04-02] MEDS ORDERED: HYDROmorphone 0.5 MG/0.5 ML SYRINGE IVP PRN ×2 (07:00→08:27)
[2022-04-02] MEDS ORDERED: LIDOCAINE 2% INJ 20 MG/ML (2 ML VIAL) ONE (07:23)
[2022-04-02] MEDS ORDERED: MIDAZOLAM 2 MG/2 ML VIAL ONE (07:23)
[2022-04-02] MEDS ORDERED: PROPOFOL 10 MG/ML 20 ML VIAL IV ONE (07:23)
[2022-04-02] MEDS ORDERED: PHENYLEPHRINE-0.9% NACL SYG 1,000 MCG/10 ML SYRINGE ONE (07:23)
[2022-04-02] MEDS ORDERED: SUCCINYLCHOLINE CHLORIDE 200 MG/10 ML VIAL IV ONE (07:23)
[2022-04-02] MEDS ORDERED: fentaNYL (PF) 50 MCG/ML 2 ML AMP ONE (07:23)
[2022-04-02] MEDS ORDERED: IOPAMIDOL M200 10 ML VIAL MISCELLANE ONE (07:29)
[2022-04-02] MEDS ORDERED: BUPIVACAIN-EPI 0.25%-1:200,000 30 ML VIAL SQ ONE (07:29)
--- NOTE | 2022-04-02 08:15 | P.OP ---
Date of Procedure: 04/02/22 Preoperative Diagnosis: 1. L5 compression fracture with burst component, no posterior involvement 2. Low back pain 3. L3-S1 stenosis, severe with radiculopathy 4. L3-S1 spondylolisthesis, with spondylosis Postoperative Diagnosis: 1. L5 compression fracture with burst component, no posterior involvement 2. Low back pain 3. L3-S1 stenosis, severe with radiculopathy 4. L3-S1 spondylolisthesis, with spondylosis Procedure(s) Performed: 1. L5 kyphoplasty with biopsy Implants: -[place] [employer] Anesthesia: GETA Surgeon: Primitivo Villarreal Market Manager #1: Filemon Sheikh (Was present and assisted with all aspects of the case from positioning to dressing placement) Pathology: other (L5 vertebral body) Condition: stable Disposition: PACU Indications for Procedure: Mr. Chavis is presenting for evaluation of low back pain. It was my pleasure to have seen and examined Mr. Chavis. In our visit today we have had a chance to go over subjective complaints, physical examination findings and treatments including the natural course history without intervention and various interventional options. The patients imaging demonstrates: XRay Lumbar Multiview (AP, Lateral, Flexion, Extension) with AP pelvis; 5 views taken at [facility] on 03/27/22 of Lumbar Spine and Pelvis: X-rays reviewed with the patient and this demonstrates postsurgical changes of the pelvis with a transiliac transsacral screw in S1. Patient also has a superior pubic rami screw on the right-hand side on with a total hip previously. Lumbar portion of film shows severe compression with burst component fracture of L5 this is an AO type AIV burst. There is a compression fracture of L4 as well as noted of the inferior endplate which is 20% compressed. There is severe spondylosis at both of these levels. Flattening of the normal lumbar lordosis is noted as well secondary to these fractures CT [facility] 03[facility]16[facility]22 of Lumbar Spine: Images reviewed with the pt Again demonstrated AO A4 burst fracture of L5 with L4 inferior endplate fracture, compression type 30% compressed. Retropulsion of the fractured fragments of L5 cause stenosis as well as stenosis of L3-S1 region due to chronic changes. No other fractures noted at this time. No lesions. MRI scancompleted [facility] from03/18/2022 of Lumbar Spine: MRI is reviewed with patient and demonstrates again in a O type AIV burst fracture of L5 with retropulsion and stenosis. There is severe spondylosis with grade 1 anterolisthesis noted of L4 and L5. There is an acute compression fracture of L4 of the inferior endplate which is 20% to 30% compressed. There is edema within the L4 and L5 bodies which is noted on STIR imaging. There is severe stenosis noted at L3 4 and L4 5 secondary to ligamentum flavum hypertrophy disc bulging fracture and listhesis. There is flattening of normal lumbar lordosis. And the sacral segment there is artifact due to the previous screw placement within the sacrum however this does not of secure visualization of the L3 through all 5 S1 region. There is turbulent flow through this area with nerve rootlets experiencing this secondary to the severe stenosis related. No other fractures noted no other lesions. On physical exam, Mr. Chavis demonstrates significantly restricted lumbar ROM due to pain along with bilateral lower extremity radiculopathy. Furthermore the the patient does also report bilateral lower extremity weakness with L4-S1 dermatomal deficits causing significant debility, severely limited functional testing, and gait instability causing him to use a cane for ambulation assistance. I have explained to the patient that as their condition progresses it will cause further neurological deficits and eventual paralysis. Based on the patients imaging, physical exam, and the rapid progression and disabling nature of their symptoms, at this time I recommend surgery in the form or a: lumbar (L3-S1) decompression and fusion with L5 kyphoplasty. I discussed the risk and benefits of this procedure at length with Mr. Chavis. The patient agreed to considered pursuing the procedure abovementioned. Prior to surgery, she should follow up with her PCP (Cardio, ID, IM etc) for clearance. Questions were invited and answered, and the patient wishes to proceed as outlined below. Currently, I am recommendin.lumbar (L3-S1) decompression and fusion with L5 kyphoplasty The patient and family did not want the stabilization and decompression at this time. And they understood the risks and benefits of this as outlined in risk review and previous notes pre op. They wish to continue with just the kyphoplasty Description of Procedure: L5 Kyphoplasty The patient was seen and examined in the preoperative area. All preoperative protocols were followed. Informed consent was obtained, risks and benefits of the procedure were discussed at length. Risks including bleeding infection damage to the surrounding tissue and risk of re-operation were discussed with the patient. Risk of anesthesia up to and including was discussed with the patient. These are outlined in the risk review. They were willing to accept these risks and all the risks of surgery. The patient was given a weight-based dose of antibiotics in the form of 2 g Ancef. The patient was seen and evaluated by the anesthesia team who deemed them fit for surgery. The site was marked, the patient was willing to proceed with the procedure. The patient was transferred to the operative suite by the Department of anesthesia. They were then drifted off to sleep by the department anesthesia and GETA was performed. The patient tolerated this well. Once confirmation of lines and ventilation the patient was transferred to a prone Perico table very carefully. All bony prominences including wrists, elbows, axilla, chest, hips, and thighs, and feet were padded very well. Special attention was paid to the genitalia, and these were padded accordingly. SCDs were placed on bilateral lower extremities and were connected. Arms were well padded and placed on arm boards up and out in the 90/90 position. Once in position, again we confirmed good ventilation capabilities and that lines were running appropriately. The patients Lumbar spine was then exposed. 1010s were placed outlining the incision site. Standard alcohol was used to clean the incision site and allowed to dry. C-arm was used to needle localize the pedicles at L5 and bio-ximena the patient and confirm level for incision which was marked with a skin marker. Operative briefing was performed with all teams and everyone in agreement to proceed. The patient was then prepped and draped in a normal sterile fashion. Timeout was then performed, and all parties agreed with the procedure to be performed. Skin krys was made. Jamshitdi was passed into the L5 vertebral body via the pedicle. This was done with biplane fluoroscopy. Once in good position in the body the trochar removed. Biopsy needle was passed into the body and biopsy taken. Drill was then passed and biopsy material taken from drill as well. Curette then used to reduce endplate and create more space. Balloon was then passed an inflated which showed good reduction of endplate on AP and Lateral and confirmed central placement. The cement was then placed and pt remained stable. Good fill of cement was seen without extravasation. Once good fill, the Jamshedi was removed and the wound irrigated. This was repeated on the contralateral side for b/l cannulation and fill. The skin was closed with a simple stitch and dressed with a bandaid. The patient was then transferred off the table back to their hospital bed a- traumatically. They were extubated by the department of anesthesia. They were then transferred to PACU in stable condition having tolerated the procedure with no complications.
[2022-04-02] MEDS ORDERED: HYDROcodone/APAP 10-325MG 1 EACH TAB PO PRN (08:27)
[2022-04-02] MEDS ORDERED: HYDROcodone/APAP 5-325MG 1 EACH TAB PO PRN (08:27)
[2022-04-02] MEDS ORDERED: SENNOSIDES-DOCUSATE SODIUM 1 EACH TAB PO PRN (08:27)
[2022-04-02] MEDS ORDERED: CYCLOBENZAPRINE 5 MG TAB PO PRN (08:27)
--- NOTE | 2022-04-02 10:10 | FL ---
EXAMINATION TYPE: FL guidance operating room, XR lumbar spine 2 or 3V DATE OF EXAM: 04/02/2022 COMPARISON: NONE HISTORY: 82-year-old male L3-S1 decompression, kyphoplasty FINDINGS: Imaging during L5 kyphoplasty. Previous screw fixation across the SI joints is noted. FLUOROSCOPY Fluoroscopy time of 52 seconds was used during kyphoplasty. 13 image/s document/s the procedure. IMPRESSION: Procedural fluoroscopy as above.
[2022-04-02 12:28] VITALS: RESP 18
[2022-04-02] MEDS: ACETAMINOPHEN TAB 325 MG TAB PO SCH ×2 (13:08→17:11)
[2022-04-02 15:31] VITALS: BP 117/66; PULSE 71; TEMP 97.9
== END 2022-04-02 18:39 | disposition home or self-care (01) ==
LOC: OR 06:07 → 4SSUR 08:25 → EDSTATUS 14:30 → OR 18:39
PROVIDERS: ATTEND Orthopaedic Surgery
DX: S32.05 Fracture of fifth lumbar vertebra (principal); M43.17 Spondylolisthesis, lumbosacral region; M47.27 Other spondylosis with radiculopathy, lumbosacral region; M48.061 Spinal stenosis, lumbar region without neurogenic claudication; G47.9 Sleep disorder, unspecified; M62.50 Muscle wasting and atrophy, not elsewhere classified, unspecified site; F41.9 Anxiety disorder, unspecified; I10 Essential (primary) hypertension; F17.210 Nicotine dependence, cigarettes, uncomplicated; Z96.643 Presence of artificial hip joint, bilateral; Z98.41 Cataract extraction status, right eye; Z86.59 Personal history of other mental and behavioral disorders; Z88.5 Allergy status to narcotic agent; X58.XXXA Exposure to other specified factors, initial encounter
CPT/HCPCS: 88307; 72100; 22514; 22515; C1713; J2250; J0330; J1100; J0690; J2405; J3010; J2370; J2704; Q9966; J2001

== ENCOUNTER → 2022-07-11 | Outpatient (CLI) | payer MEDICARE, BC ==
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
== END | disposition home or self-care (01) ==
LOC: RADCTMAIN 09:26
PROVIDERS: ATTEND Orthopaedic Surgery
DX: S32.050A Wedge compression fracture of fifth lumbar vertebra, initial encounter for closed fracture (principal); M51.16 Intervertebral disc disorders with radiculopathy, lumbar region; M48.061 Spinal stenosis, lumbar region without neurogenic claudication
CPT/HCPCS: 72131

== ENCOUNTER → 2022-08-01 | Outpatient (CLI) | payer MEDICARE, BC ==
[2022-08-01 12:32] VITALS: BP 107/68; PULSE 70; RESP 18; TEMP 97.9
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
== END ==
LOC: PNWHC3 10:30
PROVIDERS: ATTEND Specialist
DX: M96.1 Postlaminectomy syndrome, not elsewhere classified (principal); Z87.891 Personal history of nicotine dependence; I10 Essential (primary) hypertension; M19.90 Unspecified osteoarthritis, unspecified site; F41.9 Anxiety disorder, unspecified; M43.16 Spondylolisthesis, lumbar region; M48.061 Spinal stenosis, lumbar region without neurogenic claudication; M47.26 Other spondylosis with radiculopathy, lumbar region; Z88.5 Allergy status to narcotic agent
CPT/HCPCS: 99211

== ENCOUNTER 2022-08-20 10:10 | Day surgery (SDC) | payer MEDICARE, BC ==
[2022-08-20 10:37] VITALS: TEMP 97.2
[2022-08-20 11:08] LABS: Partial Thromboplastin Time 25.4 sec (22.0-30.0); Prothrombin Time 10.6 sec (9.0-12.0)
[2022-08-20] MEDS ORDERED: methylPREDNISolone ACETATE 40 MG/ML 1 ML VIAL ONE (11:54)
[2022-08-20] MEDS ORDERED: IOPAMIDOL M200 10 ML VIAL ONE (11:54)
--- NOTE | 2022-08-20 12:07 | P.PCN ---
Date of Procedure: 08/20/22 Procedure(s) Performed: PREOPERATIVE DIAGNOSIS: 1-Lumbar radiculopathy . 2-lumbar degenerative disc disease. 3-lumbar spondylosis with lumbar facet arthropathy without myelopathy POSTOPERATIVE DIAGNOSIS: 1-lumbar radiculopathy. 2-lumbar degenerative disc disease. 3-lumbar spondylosis with facet arthropathy without myelopathy PROCEDURE 1. Transforaminal epidural steroid injection under fluoroscopic guidance at left L5-S1 level. (Fluoroscopy images stored on file in the radiology Department ) 2. Lumbar epidurogram . ANESTHESIA: Local with 1% lidocaine 3 ml only EBL: Minimal PROCEDURE INDICATION: The patient with low back pain and radiculopathy symptoms unresponsive to conservative treatment. PROCEDURE DESCRIPTION / TECHNIQUE: The patient was seen and identified in the preoperative area. Risks, benefits, complications, and alternatives were discussed with the patient. The patient agreed to proceed with the procedure and signed the consent. IV was started, and vital signs were stable. Patient was taken to the OR and time out was completed. The patient was placed in the prone position on procedure table and a pillow was placed under the abdomen to reduce lumbar lordosis. The lumbosacral area was prepped and draped in the usual sterile fashion. Critical pause was taken. Vital signs were closely monitored during the procedure. Conscious sedation was used during the procedure to decrease patient s anxiety. Using oblique fluoroscopy, the chin of the `JelaniTramaine dog at left L5-S1 level was identified, and the skin and deeper tissues just below was localized with 1% lidocaine. Subsequently, a 22-gauge 3.5-inch spinal needle was advanced under a tunneled view fluoroscopic guidance just underneath the chin of the `Hamlety dog at the left L5-S1 Under lateral fluoroscopy, the needle was then advanced to the posterior border of the interforaminal space. After negative aspiration of CSF and blood and with no paresthesias, 1 mL Isovue 200 contrast dye was injected excellent epidurogram and outlining of the nerve root Subsequently, 3 mL of block solution containing 40 mg Depo-Medrol and 2 mL of 0.9% normal saline PF was injected. Needle was removed . At the end of the procedure, skin was cleansed, and bandages were applied. COMPLICATIONS:none DISPOSITION / PLANS: The patient was placed in a supine position and transferred to the recovery area in a stable condition for observation. There was no ev idence of lower extremity motor or sensory deficit after the procedure. Patient was discharged from the recovery room after meeting discharge criteria. Home discharge instructions were given to the patient by the staff. The patient was reexamined prior to discharge. note= patient was scheduled to have lumbar epidural steroid injection at L5-S1 but in the preop holding area he reports that his pain mainly in the low back area with radiation to the left lower extremity for this reason we change the procedure to left-sided transforaminal at L5-S1 which would be more beneficial to him. Patient will be seen in the pain clinic in a few weeks and will reevaluate
[2022-08-20 12:24] VITALS: BP 130/68; PULSE 54; RESP 20
--- NOTE | 2022-08-20 16:37 | FL ---
Intraoperative/procedural fluoroscopic services were provided. Total fluoroscopy time is 5.2 seconds with a total of 1 submitted images to PACS. Please see the operative/procedural note for further deta ils. DAP: [id number] mGym2
== END 2022-08-20 12:27 ==
LOC: ORPAIN 10:10
PROVIDERS: ATTEND Specialist
DX: M51.16 Intervertebral disc disorders with radiculopathy, lumbar region (principal); M47.26 Other spondylosis with radiculopathy, lumbar region
CPT/HCPCS: 85610; 85730; 64483; J1030; Q9966

== ENCOUNTER → 2022-09-11 | Outpatient (CLI) | payer MEDICARE, BC ==
[2022-09-11 12:42] VITALS: BP 137/69; PULSE 86; RESP 18; TEMP 98.2
--- NOTE | 2022-09-11 14:20 | P.PAINPG ---
PQRS Measure Charge Sheet Comment: A 82 yr old male w at side with a history of severe and chronic LBP secondary to lumbar DDD and spondylosis with facet arthropathy without myelopathy presents today for evaluation s/p L TESI L5-S1. Pt states he experienced 0% pain relief s/p procedure. Pain level is provoked at 6 /10 in intensity, constant, localized in the lumbar spine, burning, sharp in character w shooting towards the back of the BL knees. Pain is provoked by over activity. Pain is alleviated with laying spine, PT x 1 wk which he is currently in, ice, medications, repositioning and rest. Oswetry scale at 21. Disinterested in SCS Trial at this time. Interventional pain procedures completed include L TFESI L5-S1 x1 Patient is currently on Advil Patient denies any side effects of the medication(s), denies excessive drowsiness or sleepiness, denies suicidal ideation and reports that the current pain medication is helping to control the pain and improve activities of daily living. Patient denies any motor or sensory deficits. Patient denies any fever or night sweats, denies any change in the bowel movements or urination. Physical Examination: -Constitutional: Cooperative. Not in acute distress . - Neurologic: Cranial nerve II to XII intact. No focal neurological deficits. - Psychatric: Alert & oriented x 3. Matching mood & appropriate affect. Judgment and insight intact. - Musculoskeletal: Cervical spine: Muscle bulk/ tone/ strength in the bilateral upper extremities normal Vertebral body tenderness to palpation over Spurling test positive Distraction test positive Facet loading test positive TTP Thoracic spine Muscle bulk / tone/ strength in the bilateral paraspinal muscles normal Vertebral body tender to palpation over Facet loading test positive TTP Lumbar spine: Motor bulk/ tone/ strength lower extremities , thigh and legs : 5/5 Deep tendon reflexes : Normal Knee Jerk. Normal Ankle Jerk . Vertebral body tenderness to palpation over Her Test positive Lumbar Facet Loading Test positive BL taut bands at L2-S1 w twitch response Straight Leg Raise: positive at 30 degrees right side/ left side Gaenslen's Test positive Sacral spine : Severe tenderness over the Sacroiliac joint: right side / left side Range of motion: Flexion of the lumbar spine <60 degrees Range of motion: Extension of the lumbar spine <20 degrees Gaenslen's Test positive right side / left side Margo test: positive right side / left side Thigh Thrust Test positive right side / left side Sacral Thrust Test positive right side / left side Assessment and plan: Chronic LBP secondary to lumbar DDD, spondylosis with facet arthropathy without myelopathy Recommendation of BL TPIs L2-S1. May need a series of injections for optimal pain relief. Risks, benefits of procedure discussed and pt verbalized understanding. Admits to anticoagulant use or medical history of diabetes. Protocol for discontinuation/ continuation of medications aden procedure discussed. Minimal anesthesia provided, if clinically indicated, consisting of Versed and Fentanyl. All questions answered. I have spent less than 30 minutes on patient care today. Dr Christensen was available by phone for the evaluation of this patient. The time was used to review the medical records including relevant urine studies and Prescription history (MAPs), review of the available imaging, evaluation and examination of the patient, coordination of care with the medical staff and if applicable referring physicians, as well as creation of the medical record PQRS Narrative: Smoking Status Former smoker Hx Alcohol Use (MH) Yes: RARELY Home Medications: Ambulatory Orders Gabapentin 600 mg PO DAILY 08/20/22 Warfarin [Coumadin] 4 mg PO DAILY 08/20/22 Zolpidem Tartrate [Ambien] 5 mg PO HS PRN 08/20/22 Controlled Substance Measures - Controlled Substance Measures Is patient prescribed a controlled substance at discharge?: No
== END ==
LOC: PNWHC3 11:04
PROVIDERS: ATTEND Specialist
DX: M51.37 Other intervertebral disc degeneration, lumbosacral region (principal); M47.817 Spondylosis without myelopathy or radiculopathy, lumbosacral region; M53.3 Sacrococcygeal disorders, not elsewhere classified; G89.29 Other chronic pain; Z87.891 Personal history of nicotine dependence; Z88.5 Allergy status to narcotic agent
CPT/HCPCS: 99211

== ENCOUNTER 2022-09-26 09:32 | Day surgery (SDC) | payer MEDICARE, BC ==
[2022-09-25 08:45] VITALS: BMI 21.5
[~2022-09-26 09:32] MED LIST changes: -ACETAMINOPHEN TAB 500 MG TAB PO PRN; -DEXAMETHASONE SOD PHOSPHATE 4 MG/ML 1 ML VIAL IV ONE; -GABAPENTIN 300 MG CAP PO PRN; +LACTATED RINGERS 1,000 ML IV SCH; -LIDOCAINE 1% (10MG/ML) FOR IV START INTRADERMA PRN; -MIDAZOLAM 2 MG/2 ML VIAL IV PRN; -ONDANSETRON 4 MG/2 ML VIAL IVP PRN; -TRANEXAMIC ACID IN NACL,ISO-OS 1,000 MG in SALINE 1 100ML.BAG IVPB PRN
[2022-09-26 10:01] VITALS: TEMP 97.4
[2022-09-26] MEDS ORDERED: methylPREDNISolone ACETATE 40 MG/ML 1 ML VIAL ONE (10:14)
[2022-09-26] MEDS ORDERED: ROPIVACAINE 5 MG/ML 20 ML AMPULE ONE (10:14)
--- NOTE | 2022-09-26 10:20 | P.PCN ---
Date of Procedure: 09/26/22 Procedure(s) Performed: Procedure= trigger point injections lumbar paraspinal muscles bilaterally , 2 on the right side from L2 to S1. Preoperative diagnosis= 1-myofascial pain syndrome lumbar paraspinal muscles 2-lumbar degenerative disc disease 3-lumbar facet arthropathy Postoperative diagnosis=Same as preop Diagnosis . Complication = none Condition= stable Anesthesia= none. Indication for the procedure= patient complaining of low back pain , examination was positive for multiple trigger point in the lumbar paraspinal muscles bilaterally and patient diagnosed with myofascial pain syndrome and is here to have trigger point injections Description of the procedure= procedure risk and benefits discussed with the patient, including but not limited, risk of infection and bleeding, and ALLERGIC reaction to the medication and not complete pain relief and patient agreed with the preceding patient taken to the operating room, placed in sitting position or standard monitors applied to the patient then after induction of anesthesia back prepped with chlorhexidine 3 times , then under sterile technique each of the trigger point that was marked in the preop holding area 2 on the right side lumbar paraspinal muscles ,each one of them injected with the 2 mL of the mixtu re of ropivacaine 0.5% 4 ML mixed with 40 mg of Depo-Medrol and 2 mL of the mixture injected at each trigger point after negative aspiration, using 25-gauge needle, injection done after negative aspiration under was no paresthesia during the injection patient tolerated the procedure well without any complications and he will follow up in the pain clinic in a few weeks note= patient was scheduled to have trigger point injection on the lumbar paraspinal muscles bilaterally, today during the examination, I could not find any trigger points on the left side, for this reason I did the procedure only on the right side ,and I found only 2 trigger point on the right side lumbar paraspinal muscles
[2022-09-26 11:05] VITALS: BP 137/78; PULSE 50; RESP 18
== END 2022-09-26 11:06 | disposition home or self-care (01) ==
LOC: ORPAIN 09:32
PROVIDERS: ATTEND Specialist
DX: M79.18 Myalgia, other site (principal); M51.36 Other intervertebral disc degeneration, lumbar region; M47.816 Spondylosis without myelopathy or radiculopathy, lumbar region
CPT/HCPCS: 20553; J1030; J2795

== ENCOUNTER → 2022-10-16 | Outpatient (CLI) | payer MEDICARE, BC ==
--- NOTE | 2022-10-16 14:23 | P.PAINPG ---
PQRS Measure Charge Sheet Comment: A 82 yr old male w at side with a history of severe and chronic LBP secondary to lumbar DDD and spondylosis with facet arthropathy without myelopathy presents today for evaluation s/p Lumbosacral TPIs. Pt states he experienced 50% pain relief x 1 day s/p procedure. Pain level is provoked at 6 /10 in intensity, constant, localized in the lumbar spine, achy, tight in character w shooting towards the back of the BL knees. Pain is provoked by over activity. Pain is alleviated with laying spine, PT x 6 wk which he is currently in, ice, medications, repositioning and rest. Oswetry scale at 12. Still disinterested in SCS Trial at this time. Interventional pain procedures completed include L TFESI L5-S1 x1, Lumbosacral TPIs Patient is currently on Advil Patient denies any side effects of the medication(s), denies excessive drowsiness or sleepiness, denies suicidal ideation and reports that the current pain medication is helping to control the pain and improve activities of daily living. Patient denies any motor or sensory deficits. Patient denies any fever or night sweats, denies any change in the bowel movements or urination. Physical Examination: -Constitutional: Cooperative. Not in acute distress . - Neurologic: Cranial nerve II to XII intact. No focal neurological deficits. - Psychatric: Alert & oriented x 3. Matching mood & appropriate affect. Judgment and insight intact. - Musculoskeletal: Cervical spine: Muscle bulk/ tone/ strength in the bilateral upper extremities normal Vertebral body tenderness to palpation over Spurling test positive Distraction test positive Facet loading test positive TTP Thoracic spine Muscle bulk / tone/ strength in the bilateral paraspinal muscles normal Vertebral body tender to palpation over Facet loading test positive TTP Lumbar spine: Motor bulk/ tone/ strength lower extremities , thigh and legs : 5/5 Deep tendon reflexes : Normal Knee Jerk. Normal Ankle Jerk . Vertebral body tenderness to palpation over L5 Her Test positive Lumbar Facet Loading Test positive Straight Leg Raise: positive at 30 degrees right side/ left side Gaenslen's Test positive Sacral spine : Severe tenderness over the Sacroiliac joint: right side / left side Range of motion: Flexion of the lumbar spine <60 degrees Range of motion: Extension of the lumbar spine <20 degrees Gaenslen's Test positive right side / left side Margo test: positive right side / left side Thigh Thrust Test positive right side / left side Sacral Thrust Test positive right side / left side Assessment and plan: Chronic LBP secondary to lumbar DDD, spondylosis with facet arthropathy without myelopathy Recommendation of MARQUEZ L5-S1. May need a series of injections, up to 4 within a 12 mo period, for optimal pain relief. Risks, benefits of procedure discussed and pt verbalized understanding. Admits to anticoagulant use or medical history of diabetes. Protocol for discontinuation/ continuation of medications aden procedure discussed. Minimal anesthesia provided, if clinically indicated, consisting of Versed and Fentanyl. All questions answered. I have spent less than 30 minutes on patient care today. Dr Christensen was available by phone for the evaluation of this patient. The time was used to review the medical records including relevant urine studies and Prescription history (MAPs), review of the available imaging, evaluation and examination of the patient, coordination of care with the medical staff and if applicable referring physicians, as well as creation of the medical record PQRS Narrative: Smoking Status Former smoker Hx Alcohol Use (MH) Yes: RARELY Home Medications: Ambulatory Orders Gabapentin 600 mg PO DAILY 08/20/22 Warfarin [Coumadin] 6 mg PO DAILY 08/20/22 Zolpidem Tartrate [Ambien] 5 mg PO HS PRN 08/20/22 Donepezil HCl [Aricept] 10 mg PO DAILY 09/25/22 Controlled Substance Measures - Controlled Substance Measures Is patient prescribed a controlled substance at discharge?: No
[2022-10-16 14:42] VITALS: BP 143/71; PULSE 56; RESP 14; TEMP 98.2
== END ==
LOC: PNWHC3 13:06
PROVIDERS: ATTEND Specialist
DX: M51.36 Other intervertebral disc degeneration, lumbar region (principal); M47.816 Spondylosis without myelopathy or radiculopathy, lumbar region; G89.29 Other chronic pain; Z87.891 Personal history of nicotine dependence; Z88.5 Allergy status to narcotic agent
CPT/HCPCS: 99211

== ENCOUNTER 2022-11-05 08:49 | Day surgery (SDC) | payer MEDICARE, BC ==
[2022-10-29 10:27] VITALS: BMI 22.2
[2022-11-05 10:19] VITALS: TEMP 97.1
[2022-11-05] MEDS ORDERED: IOPAMIDOL M200 10 ML VIAL ONE (10:37)
[2022-11-05] MEDS ORDERED: methylPREDNISolone ACETATE 80 MG/ML 1 ML VIAL ONE (10:37)
--- NOTE | 2022-11-05 10:49 | P.PCN ---
Date of Procedure: 11/05/22 Description of Procedure: Procedure: 1. L5-S1 Epidural steroid injection under fluoroscopic guidance 2. Lumbar epidurogram PREOPERATIVE DIAGNOSIS: Lumbar degenerative disc disease, and Lumbar radiculopathy. POSTOPERATIVE DIAGNOSIS: Lumbar degenerative disc disease, and Lumbar ra diculopathy. SURGEON: Morenita Butler ANESTHESIA: Local with 1% lidocaine, and IV sedation: None EBL: None. Specimen removed: None Fluoroscopic image: saved to electronic medical records PROCEDURE INDICATION: The patient had history of Lumbar degenerative disc disease and Lumbar radiculopathy. Failed to conservative therapy. Presented for epidural steroid injection. PROCEDURE DESCRIPTION: The patient was seen and identified in the preoperative area. Risks, benefits, complications, and alternatives were discussed with the patient. The patient agreed to proceed with the procedure and signed the consent. and vital signs were stable. Patient was taken to the procedure area, and time out was completed. The patient was placed in the prone position on procedure table and a pillow was placed under the abdomen to reduce lumbar lordosis. The lumbosacral area was prepped and draped in the usual sterile fashion. Critical pause was taken. Vital signs were closely monitored during the procedure. Using anterior-posterior fluoroscopy, the L5-S1 interlaminar space was identified, and skin and deeper tissues were localized with 1% lidocaine. Using anterior-posterior fluoroscopy, lateral fluoroscopy, and juhu-rt-jcuozvupoi technique, a 20 gauge 3.5 Tuohy epidural needle entered the epidural space. After negative aspiration of CSF and blood with no paresthesias, 1 ml of [id number] contrast dye was injected and an excellent epidurogram was seen. Again after negative aspiration of CSF and blood with no paresthesias, 6 mL of block solution was injected into the epidural space. Block solution contained 80 mg of Depo-Medrol, and 4 mL of preservative-free normal saline. Needle was withdrawn intact, skin was cleansed, and bandages were applied. COMPLICATIONS: None. DISPOSITION / PLANS: The patient was placed in a supine position and transferred to the recovery area in a stable condition for observation. Patient was discharged from the recovery room after meeting discharge criteria. Home discharge instructions given to the patient by the staff. The patient was reexamined prior to discharge. The patient will schedule a follow up in the clinic in 4 weeks.
--- NOTE | 2022-11-05 11:03 | FL ---
Fluoroscopy History: Back pain Lumbar epi injection with Muppari. 2 images saved. 6 sec fluoro time and .[id number] DAP
[2022-11-05 11:14] VITALS: BP 137/69; PULSE 52; RESP 15
== END 2022-11-05 11:15 | disposition home or self-care (01) ==
LOC: ORPAIN 08:49
DX: M51.16 Intervertebral disc disorders with radiculopathy, lumbar region (principal); Z88.5 Allergy status to narcotic agent; Z98.890 Other specified postprocedural states; Z79.899 Other long term (current) drug therapy
CPT/HCPCS: 62323; J1040; Q9966

== ENCOUNTER 2022-12-02 09:24 | Outpatient (CLI) | payer MEDICARE, BC ==
--- NOTE | 2022-12-02 14:49 | P.PAINPG ---
PQRS Measure Charge Sheet Comment: A 82 yr old male w at side with a history of severe and chronic LBP secondary to post laminectomy syndrome presents today for evaluation s/p MARQUEZ L5- S1 #1. Pt states he experienced 50% pain relief x 4 wks s/p procedure. Pain level is provoked at 7 /10 in intensity, constant, localized in the L hip, sharp in character w shooting towards the back of the L thigh. Pain is provoked by standing/ walking for periods of 20 min or more. Pain is alleviated with laying spine, PT x 6 wk in Oct 2022, ice, medications, use of a cane for ambulatory assistance, sitting, repositioning and rest. Oswetry scale at 22. Still disinterested in SCS Trial at this time. Interventional pain procedures completed include L TFESI L5-S1 x1, Lumbosacral TPIs, MARQUEZ L5-S1 x1 Patient is currently on Advil Patient denies any side effects of the medication(s), denies excessive drowsiness or sleepiness, denies suicidal ideation and reports that the current pain medication is helping to control the pain and improve activities of daily living. Patient denies any motor or sensory deficits. Patient denies any fever or night sweats, denies any change in the bowel movements or urination. Physical Examination: -Constitutional: Cooperative. Not in acute distress . - Neurologic: Cranial nerve II to XII intact. No focal neurological deficits. - Psychatric: Alert & oriented x 3. Matching mood & appropriate affect. Judgment and insight intact. - Musculoskeletal: Cervical spine: Muscle bulk/ tone/ strength in the bilateral upper extremities normal Vertebral body tenderness to palpation over Spurling test positive Distraction test positive Facet loading test positive TTP Thoracic spine Muscle bulk / tone/ strength in the bilateral paraspinal muscles normal Vertebral body tender to palpation over Facet loading test positive TTP Lumbar spine: Motor bulk/ tone/ strength lower extremities , thigh and legs : 5/5 Deep tendon reflexes : Normal Knee Jerk. Normal Ankle Jerk . Vertebral body tenderness to palpation Her Test positive over L L3-L4 Lumbar Facet Loading Test positive Straight Leg Raise: positive at 30 degrees right side/ left side Gaenslen's Test positive Sacral spine : Severe tenderness over the Sacroiliac joint: right side / left side Range of motion: Flexion of the lumbar spine <60 degrees Range of motion: Extension of the lumbar spine <20 degrees Gaenslen's Test positive right side / left side Margo test: positive right side / left side Thigh Thrust Test positive right side / left side Sacral Thrust Test positive right side / left side Assessment and plan: Chronic LBP secondary to post laminectomy syndrome Recommendation of L TFESI L3-L4. May need a series of injections, up to 4 within a 12 mo period, for optimal pain relief. Risks, benefits of procedure discussed and pt verbalized understanding. Admits to anticoagulant use or medical history of diabetes. Protocol for discontinuation/ continuation of medications aden procedure discussed. Minimal anesthesia provided, if clinically indicated, consisting of Versed and Fentanyl. All questions answered. I have spent less than 30 minutes on patient care today. Dr Christensen was available by phone for the evaluation of this patient. The time was used to review the medical records including relevant urine studies and Prescription history (MAPs), review of the available imaging, evaluation and examination of the patient, coordination of care with the medical staff and if applicable referring physicians, as well as creation of the medical record PQRS Narrative: Smoking Status Former smoker Hx Alcohol Use (MH) Yes: no more Home Medications: Ambulatory Orders Zolpidem Tartrate [Ambien] 5 mg PO HS PRN 08/20/22 Donepezil HCl [Aricept] 5 mg PO DAILY 09/25/22 Ibuprofen [Advil] 200 mg PO DIRECTED PRN 10/29/22 Controlled Substance Measures - Controlled Substance Measures Is patient prescribed a controlled substance at discharge?: No
[2022-12-03] MEDS ORDERED: LACTATED RINGERS 1,000 ML IV SCH (09:32)
--- NOTE | 2022-12-03 11:51 | FL ---
Fluoroscopy INDICATION: Pain FINDINGS: Fluoroscopy time: 5 seconds. Total dose area product (DAP) in uGy*m?, mGy*cm? (or similar): 0.59530 Images obtained: 2. IMPRESSION: 1. Documentation of fluoroscopy.
[2022-12-03 14:09] VITALS: RESP 16; TEMP 98.2
== END 2022-12-03 11:00 | disposition home or self-care (01) ==
LOC: PNWHC3 09:24
PROVIDERS: ATTEND Specialist
DX: M96.1 Postlaminectomy syndrome, not elsewhere classified (principal); M47.816 Spondylosis without myelopathy or radiculopathy, lumbar region; G89.29 Other chronic pain; M70.72 Other bursitis of hip, left hip; Z88.5 Allergy status to narcotic agent; Z87.891 Personal history of nicotine dependence
CPT/HCPCS: 99211

== ENCOUNTER → 2022-12-03 | Day surgery (SDC) | payer MEDICARE, BC ==
[~2022-12-03] MED LIST changes: +IOPAMIDOL M200 10 ML VIAL ONE; -LACTATED RINGERS 1,000 ML IV SCH; +methylPREDNISolone ACETATE 40 MG/ML 1 ML VIAL ONE
--- NOTE | 2022-12-03 10:40 | P.PCN ---
Date of Procedure: 12/03/22 Procedure(s) Performed: PREOPERATIVE DIAGNOSIS: 1-Lumbar radiculopathy . 2-lumbar degenerative disc disease. 3-lumbar spondylosis with lumbar facet arthropathy without myelopathy POSTOPERATIVE DIAGNOSIS: 1-lumbar radiculopathy. 2-lumbar degenerative disc disease. 3-lumbar spondylosis with facet arthropathy without myelopathy PROCEDURE 1. Transforaminal epidural steroid injection under fluoroscopic guidance at left L3-4 level. (Fluoroscopy images stored on file in the radiology Department ) 2. Lumbar epidurogram . ANESTHESIA: Local with 1% lidocaine 3 ml only EBL: Minimal PROCEDURE INDICATION: The patient with low back pain and radiculopathy symptoms unresponsive to conservative treatment. PROCEDURE DESCRIPTION / TECHNIQUE: The patient was seen and identified in the preoperative area. Risks, benefits, complications, and alternatives were discussed with the patient. The patient agreed to proceed with the procedure and signed the consent. IV was started, and vital signs were stable. Patient was taken to the OR and time out was completed. The patient was placed in the prone position on procedure table and a pillow was placed under the abdomen to reduce lumbar lordosis. The lumbosacral area was prepped and draped in the usual sterile fashion. Critical pause was taken. Vital signs were closely monitored during the procedure. Conscious sedation was used during the procedure to decrease patient s anxiety. Using oblique fluoroscopy, the chin of the `Hamlety dog at left L3-4 level was identified, and the skin and deeper tissues just below was localized with 1% lidocaine. Subsequently, a 22-gauge 3.5-inch spinal needle was advanced under a tunneled view fluoroscopic guidance just underneath the chin of the `Hamlety dog at the left L3-4 Under lateral fluoroscopy, the needle was then advanced to the posterior border of the interforaminal space. After negative aspiration of CSF and blood and with no paresthesias, 1 mL Isovue 200 contrast dye was injected excellent epidurogram and outlining of the nerve root Subsequently, 3 mL of block solution containing 40 mg Depo-Medrol and 2 mL of 0.9% normal saline PF was injected. Needle was removed . At the end of the procedure, skin was cleansed, and bandages were applied. COMPLICATIONS:none DISPOSITION / PLANS: The patient was placed in a supine position and transferred to the recovery area in a stable condition for observation. There was no eviden ce of lower extremity motor or sensory deficit after the procedure. Patient was discharged from the recovery room after meeting discharge criteria. Home discharge instructions were given to the patient by the staff. The patient was reexamined prior to discharge.
== END ==
LOC: ORPAIN 14:09
PROVIDERS: ATTEND Specialist
DX: M51.16 Intervertebral disc disorders with radiculopathy, lumbar region (principal); M47.26 Other spondylosis with radiculopathy, lumbar region; Z88.5 Allergy status to narcotic agent
CPT/HCPCS: 64483; J1030; Q9966

== ENCOUNTER → 2022-12-19 | Outpatient (CLI) | payer MEDICARE, BC ==
--- NOTE | 2022-12-19 14:49 | P.PAINPG ---
PQRS Measure Charge Sheet Comment: A 82 yr old male w at side with a history of severe and chronic LBP secondary to post laminectomy syndrome presents today for evaluation s/p L TFESI L3-L4 #1. Pt states he experienced 50% pain relief x 3 wks s/p procedure. Pain level is provoked at 7 /10 in intensity, constant, localized in the L hip, sharp in character w shooting towards the back of the L thigh. Pain is provoked by standing/ walking for periods of 20 min or more. Pain is alleviated with laying spine, PT x 6 wk in Oct 2022, ice, medications, use of a cane for ambulatory assistance, sitting, repositioning and rest. Interventional pain procedures completed include L TFESI L5-S1 x1, Lumbosacral TPIs, MARQUEZ L5-S1 x1, L TFESI L3-L4 x1 Patient is currently on Advil Patient denies any side effects of the medication(s), denies excessive drowsiness or sleepiness, denies suicidal ideation and reports that the current pain medication is helping to control the pain and improve activities of daily living. Patient denies any motor or sensory deficits. Patient denies any fever or night sweats, denies any change in the bowel movements or urination. Physical Examination: -Constitutional: Cooperative. Not in acute distress . - Neurologic: Cranial nerve II to XII intact. No focal neurological deficits. - Psychatric: Alert & oriented x 3. Matching mood & appropriate affect. Judgment and insight intact. - Musculoskeletal: Cervical spine: Muscle bulk/ tone/ strength in the bilateral upper extremities normal Vertebral body tenderness to palpation over Spurling test positive Distraction test positive Facet loading test positive TTP Thoracic spine Muscle bulk / tone/ strength in the bilateral paraspinal muscles normal Vertebral body tender to palpation over Facet loading test positive TTP Lumbar spine: +L posterolateral hip Pain w Abduction Motor bulk/ tone/ strength lower extremities , thigh and legs : 5/5 Deep tendon reflexes : Normal Knee Jerk. Normal Ankle Jerk . Vertebral body tenderness to palpation Her Test positive Lumbar Facet Loading Test positive Straight Leg Raise: positive at 30 degrees right side/ left side Gaenslen's Test positive Sacral spine : Severe tenderness over the Sacroiliac joint: right side / left side Range of motion: Flexion of the lumbar spine <60 degrees Range of motion: Extension of the lumbar spine <20 degrees Gaenslen's Test positive right side / left side Margo test: positive right side / left side Thigh Thrust Test positive right side / left side Sacral Thrust Test positive right side / left side Assessment and plan: Chronic LBP secondary to post laminectomy syndrome, L hip OA, L hip bursitis Recommendation of x ray of L hip Dx M70.70 May need additional testing if indicated. All questions answered. I have spent less than 30 minutes on patient care today. Dr Christensen was available by phone for the evaluation of this patient. The time was used to review the medical records including relevant urine studies and Prescription history (MAPs), review of the available imaging, evaluation and examination of the patient, coordination of care with the medical staff and if applicable referring physicians, as well as creation of the medical record PQRS Narrative: Smoking Status Former smoker Hx Alcohol Use (MH) Yes: no more Home Medications: Ambulatory Orders Zolpidem Tartrate [Ambien] 5 mg PO HS PRN 08/20/22 Donepezil HCl [Aricept] 5 mg PO DAILY 09/25/22 Ibuprofen [Advil] 200 mg PO DIRECTED PRN 10/29/22 Controlled Substance Measures - Controlled Substance Measures Is patient prescribed a controlled substance at discharge?: No
--- NOTE | 2022-12-19 18:40 | XR ---
EXAMINATION TYPE: XR Hip Complete LT DATE OF EXAM: 12/19/2022 COMPARISON: NONE HISTORY: 82-year-old male M70.70 Other bursitis of hip TECHNIQUE: 2 views FINDINGS: Large screw fixation extending across the SI joint. There is severe degenerative change of the left hip with extensive articular surface irregularity, subchondral sclerosis, and marginal spurr ing. Degenerative change lower lumbar spine with previous L5 vertebroplasty. No displaced fracture. IMPRESSION: Severe left hip OA. Previous screw fixation across the SI joint. L5 vertebroplasty. No displaced frac ture.
[2022-12-20 09:06] VITALS: BP 128/79; PULSE 77; RESP 16; TEMP 98
== END ==
LOC: PNWHC3 08:05
PROVIDERS: ATTEND Specialist
DX: M96.1 Postlaminectomy syndrome, not elsewhere classified (principal); M16.12 Unilateral primary osteoarthritis, left hip; M70.72 Other bursitis of hip, left hip; G89.29 Other chronic pain; Z87.891 Personal history of nicotine dependence; Z88.5 Allergy status to narcotic agent
CPT/HCPCS: 73502; 99211

== ENCOUNTER → 2023-01-01 | Outpatient (CLI) | payer MEDICARE, BC ==
--- NOTE | 2023-01-04 07:37 | MR ---
EXAMINATION TYPE: MR hip LT wo con DATE OF EXAM: 01/01/2023 COMPARISON: Prior CT pelvis March 16, 2022. Left hip x-rays December 19, 2022. HISTORY: Lt hip pain for 8 months, bursitis. Pain remains present despite multiple injections Standard multiplanar, multisequence MRI departmental protocol Multiplanar, multisequence images of the pelvis focusing on the left hip were acquired without contra st. FINDINGS: There is susceptibility artifact from metallic prosthesis in the right hip and surgical daysi nge in the right iliac bone extending through the superior pelvic ramus. There is additional suscepti bility artifact related to large fixating nail through the bilateral sacroiliac joints noted. There is advanced narrowing in the left hip joint with moderate to severe head and neck collar spurri ng. There is loss of spherical shape to the left humeral head with bony fragmentation along the super ior aspect extending anteriorly. There is heterogeneous increased T2 signal or edema through the left femoral head extending into the femoral neck. There is small left hip joint effusion. There are symm etric small fat-containing bilateral inguinal hernias redemonstrated. Tiny calcification in the left inguinal hernia axial image 10 is redemonstrated. Muscle bulk in the bilateral thighs is symmetric an d felt within normal limits. No groin adenopathy is present. No free fluid in the pelvis. No abnormal bowel dilatation. IMPRESSION: Advanced degenerative changes in left hip with also fairly severe avascular necrosis now present as detailed above.
== END | disposition home or self-care (01) ==
LOC: RADMRIMAIN 12:14
PROVIDERS: ATTEND Specialist
DX: M70.72 Other bursitis of hip, left hip (principal); M16.12 Unilateral primary osteoarthritis, left hip; M87.052 Idiopathic aseptic necrosis of left femur

== ENCOUNTER → 2023-01-06 | Outpatient (CLI) | payer MEDICARE, BC ==
[2023-01-06 14:01] VITALS: BP 114/68; PULSE 66; RESP 16; TEMP 98.5
--- NOTE | 2023-01-06 14:23 | P.PAINPG ---
PQRS Measure Charge Sheet Comment: A 82 yr old male w at side with a history of severe and chronic LBP secondary to post laminectomy syndrome presents today for imaging results. Pt states he experienced 50% pain relief x 3 wks s/p procedure. Pain level is provoked at 7 /10 in intensity, constant, localized in the L hip, sharp in character w shooting towards the back of the L thigh. Pain is provoked by standing/ walking for periods of 20 min or more. Pain is alleviated with laying spine, PT x 6 wk in Oct 2022, ice, medications, use of a cane for ambulatory assistance, sitting, repositioning and rest. Interventional pain procedures completed include L TFESI L5-S1 x1, Lumbosacral TPIs, MARQUEZ L5-S1 x1, L TFESI L3-L4 x1 Patient is currently on Advil Patient denies any side effects of the medication(s), denies excessive drowsiness or sleepiness, denies suicidal ideation and reports that the current pain medication is helping to control the pain and improve activities of daily living. Patient denies any motor or sensory deficits. Patient denies any fever or night sweats, denies any change in the bowel movements or urination. Physical Examination: -Constitutional: Cooperative. Not in acute distress . - Neurologic: Cranial nerve II to XII intact. No focal neurological deficits. - Psychatric: Alert & oriented x 3. Matching mood & appropriate affect. Judgment and insight intact. - Musculoskeletal: Cervical spine: Muscle bulk/ tone/ strength in the bilateral upper extremities normal Vertebral body tenderness to palpation over Spurling test positive Distraction test positive Facet loading test positive TTP Thoracic spine Muscle bulk / tone/ strength in the bilateral paraspinal muscles normal Vertebral body tender to palpation over Facet loading test positive TTP Lumbar spine: +L posterolateral hip Pain w Abduction Motor bulk/ tone/ strength lower extremities , thigh and legs : 5/5 Deep tendon reflexes : Normal Knee Jerk. Normal Ankle Jerk . Vertebral body tenderness to palpation Her Test positive Lumbar Facet Loading Test positive Straight Leg Raise: positive at 30 degrees right side/ left side Gaenslen's Test positive Sacral spine : Severe tenderness over the Sacroiliac joint: right side / left side Range of motion: Flexion of the lumbar spine <60 degrees Range of motion: Extension of the lumbar spine <20 degrees Gaenslen's Test positive right side / left side Margo test: positive right side / left side Thigh Thrust Test positive right side / left side Sacral Thrust Test positive right side / left side Imaging: X-ray left hip from 12/19/22 reviewed MRI noncontrast left hip from 01/04/23 reviewed Assessment and plan: Chronic LBP secondary to post laminectomy syndrome, L Hip Avascular Necrosis Recommendation of medication management and referral to Orthopedics. Bennett 5/325mg #90 w 1 RF. Opiate/ narcotic agreement signed 01/06/23 Use, side effects, adverse reactions and safe storage discussed. Pt and at side acknowledged understanding. All questions answered. I have spent less than 30 minutes on patient care today. Dr Christensen was available by phone for the evaluation of this patient. The time was used to review the medical records including relevant urine studies and Prescription history (MAPs), review of the available imaging, evaluation and examination of the patient, coordination of care with the medical staff and if applicable referring physicians, as well as creation of the medical record PQRS Narrative: Smoking Status Former smoker Hx Alcohol Use (MH) Yes: no more Home Medications: Ambulatory Orders Zolpidem Tartrate [Ambien] 5 mg PO HS PRN 08/20/22 Donepezil HCl [Aricept] 5 mg PO DAILY 09/25/22 Ibuprofen [Advil] 200 mg PO DIRECTED PRN 10/29/22 HYDROcodone/APAP 5-325MG [Bennett 5-325] 1 tab PO Q8HR PRN 30 Days #90 tab 01/06/23 HYDROcodone/APAP 5-325MG [Bennett 5-325] 1 tab PO TID PRN 30 Days #90 tab 01/06/23 Controlled Substance Measures - Controlled Substance Measures Is patient prescribed a controlled substance at discharge?: Yes When asked, does pt state using other controlled substances?: No If prescribed controlled substance>3 days was MAPS reviewed?: Yes If Rx opioid, was Start Talking consent form obtained?: Yes Was information provided regarding opioid addiction?: Yes
== END ==
LOC: PNWHC3 12:20
PROVIDERS: ATTEND Specialist
DX: M70.70 Other bursitis of hip, unspecified hip (principal); M96.1 Postlaminectomy syndrome, not elsewhere classified; G89.29 Other chronic pain; Z87.891 Personal history of nicotine dependence; Z88.5 Allergy status to narcotic agent
CPT/HCPCS: 99211

== ENCOUNTER → 2023-01-17 | Outpatient (CLI) | payer MEDICARE, BC ==
[2023-01-18 02:02] LABS: Basophils # (A) 0.05 X 10*3/uL (0.00-0.10); Basophils % (A) 0.9 %; Eosinophils # (A) 0.18 X 10*3/uL (0.04-0.35); Eosinophils % (A) 3.2 %; HCT 39.6 % (39.6-50.0); HGB 13.2 d/dL (13.0-17.0); Lymphocytes # (A) 0.88 X 10*3/uL (0.90-5.00); Lymphocytes % (A) 15.6 %; MCH 33.8 pg (27.0-32.0); MCHC 33.3 d/dL (32.0-37.0); MCV 101.5 FL (80.0-97.0); Monocytes # (A) 0.47 X 10*3/uL (0.20-1.00); Monocytes % (A) 8.3 %; NRBC Per 100 WBC 0 X 10*3/uL (0.00-0.01); Neutrophils # (A) 4.04 X 10*3/uL (1.80-7.70); Neutrophils % (A) 71.6 %; Platelet Count 271 X 10*3/uL (140-440); RDW 12.2 % (11.5-14.5); WBC 5.64 X 10*3/uL (4.50-10.00)
[2023-01-18 02:16] LABS: Calcium 9.1 mg/dL (8.7-10.3); Carbon Dioxide 28.6 mmol/L (21.6-31.8); Chloride 102 mmol/L (96-109); Glucose 112 mg/dL (70-110); Potassium 4.6 mmol/L (3.5-5.5); Sodium 138 mmol/L (135-145)
[2023-01-18 04:22] LABS: INR 0.96 sec (0.93-1.11); Prothrombin Time 10.4 sec (9.9-11.9)
== END | disposition home or self-care (01) ==
LOC: LABPAT 14:44
PROVIDERS: ATTEND Orthopaedic Surgery
DX: Z01.812 Encounter for preprocedural laboratory examination (principal); M16.11 Unilateral primary osteoarthritis, right hip; Z22.322 Carrier or suspected carrier of Methicillin resistant Staphylococcus aureus
CPT/HCPCS: 80048; 85025; 85610; 86850; 86900; 86901; 87070; 93005

== ENCOUNTER → 2023-06-17 | Outpatient (CLI) | payer MEDICARE, BC | END | disposition home or self-care (01) | LOC: LABPAT 11:07 | PROVIDERS: ATTEND Orthopaedic Surgery | DX: Z01.812 Encounter for preprocedural laboratory examination (principal); M16.12 Unilateral primary osteoarthritis, left hip; Z22.322 Carrier or suspected carrier of Methicillin resistant Staphylococcus aureus ==

== ENCOUNTER → 2023-06-20 | Outpatient (CLI) | payer MEDICARE, BC ==
[2023-06-20 11:50] LABS: INR 0.9 (<1.2); Partial Thromboplastin Time 25.1 sec (22.0-30.0); Prothrombin Time 10.1 sec (10.0-12.5)
[2023-06-20 15:43] LABS: ALT 12 U/L (10-49); AST 20 U/L (14-35); Albumin 4.3 g/dL (3.8-4.9); Albumin/Globulin Ratio 1.72 Ratio (1.60-3.17); Alkaline Phosphatase 89 U/L (41-126); BUN/Creat Ratio 31.38 Ratio (12.00-20.00); Blood Urea Nitrogen 25.1 mg/dL (9.0-27.0); Calcium 9.6 mg/dL (8.7-10.3); Carbon Dioxide 24.5 mmol/L (21.6-31.8); Chloride 106 mmol/L (96-109); Globulin 2.5 g/dL (1.6-3.3); Glucose 114 mg/dL (70-110); Potassium 4.5 mmol/L (3.5-5.5); Sodium 142 mmol/L (135-145); Total Bilirubin 0.4 mg/dL (0.3-1.2); Total Protein 6.8 g/dL (6.2-8.2)
[2023-06-20 15:55] LABS: Basophils # (A) 0.04 X 10*3/uL (0.00-0.10); Basophils % (A) 0.7 %; Eosinophils # (A) 0.06 X 10*3/uL (0.04-0.35); HCT 39.3 % (39.6-50.0); HGB 13.4 g/dL (13.0-17.0); Lymphocytes # (A) 0.79 X 10*3/uL (0.90-5.00); Lymphocytes % (A) 13.5 %; MCH 34.5 pg (27.0-32.0); MCHC 34.1 g/dL (32.0-37.0); MCV 101.3 FL (80.0-97.0); Mean Platelet Volume 9.9 FL (9.5-12.2); Monocytes % (A) 6.8 %; NRBC Per 100 WBC 0 X 10*3/uL (0.00-0.01); Neutrophils # (A) 4.54 X 10*3/uL (1.80-7.70); Neutrophils % (A) 77.7 %; Platelet Count 256 X 10*3/uL (140-440); RBC 3.88 X 10*6/uL (4.40-5.60); RDW 12.5 % (11.5-14.5); WBC 5.85 X 10*3/uL (4.50-10.00)
== END | disposition home or self-care (01) ==
LOC: LABPAT 09:40
PROVIDERS: ATTEND Orthopaedic Surgery
DX: Z01.812 Encounter for preprocedural laboratory examination (principal); Z22.322 Carrier or suspected carrier of Methicillin resistant Staphylococcus aureus; M16.12 Unilateral primary osteoarthritis, left hip
CPT/HCPCS: 80053; 83036; 85025; 85610; 85730; 86850; 86900; 86901; 87070; 93005

== ENCOUNTER 2023-06-30 05:52 | Day surgery (SDC) | payer MEDICARE, BC ==
[~2023-06-30 05:52] MED LIST changes: +HYDROmorphone 0.5 MG/0.5 ML SYRINGE IVP PRN; -IOPAMIDOL M200 10 ML VIAL ONE; +LIDOCAINE 1% (10MG/ML) FOR IV START INTRADERMA PRN; +TRANEXAMIC 1,000 MG/100ML-NACL 1,000 MG in SALINE 1 100ML.BAG IV PRN; +TRANEXAMIC 1,000 MG/100ML-NACL 1,000 MG in SALINE 1 100ML.BAG IVPB PRN; -methylPREDNISolone ACETATE 40 MG/ML 1 ML VIAL ONE
[2023-06-30] MEDS: LACTATED RINGERS 1,000 ML IV SCH ×2 (06:09→12:39)
[2023-06-30] MEDS: oxyCODONE ER 10 MG TAB.ER.12H PO PRN (06:17)
[2023-06-30] MEDS: DEXAMETHASONE SOD PHOSPHATE 10 MG/ML 1 ML VIAL IV PRN (06:17)
[2023-06-30] MEDS: DOCUSATE 100 MG CAP PO PRN (06:17)
[2023-06-30] MEDS: ACETAMINOPHEN TAB 500 MG TAB PO PRN (06:17)
[2023-06-30] MEDS: KETOROLAC 15 MG/ML 1 ML VIAL IVP PRN (06:17)
[2023-06-30] MEDS: ONDANSETRON 4 MG/2 ML VIAL IVP PRN ×2 (06:18→16:42)
[2023-06-30] MEDS: FAMOTIDINE 20 MG/2 ML VIAL IVP PRN (06:28)
[2023-06-30] MEDS: MIDAZOLAM 2 MG/2 ML VIAL IVP ONE (06:46)
[2023-06-30] MEDS ORDERED: NEOSTIGMINE 1 MG/ML 10 ML VIAL ONE (06:54)
[2023-06-30] MEDS ORDERED: ROPIVACAINE 5 MG/ML 30 ML VIAL ONE (06:54)
[2023-06-30] MEDS ORDERED: WATER FOR INJECTION, STERILE 10 ML VIAL IV ONE (06:54)
[2023-06-30] MEDS ORDERED: fentaNYL (PF) 50 MCG/ML 2 ML AMP ONE (06:54)
[2023-06-30] MEDS ORDERED: ESMOLOL 100 MG/10 ML VIAL ONE (06:54)
[2023-06-30] MEDS ORDERED: DEXAMETHASONE SOD PHOSPHATE 4 MG/ML 1 ML VIAL ONE (06:54)
[2023-06-30] MEDS ORDERED: LIDOCAINE 1% INJ 10MG/ML (20 ML MDV) ONE (06:54)
[2023-06-30] MEDS ORDERED: TRANEXAMIC 1,000 MG/100ML-NACL PREMIX BAG ONE (06:54)
[2023-06-30] MEDS ORDERED: ROCURONIUM 10 MG/ML (5 ML VIAL) IV ONE (06:54)
[2023-06-30] MEDS ORDERED: PROPOFOL 10 MG/ML 20 ML VIAL IV ONE (06:54)
[2023-06-30] MEDS ORDERED: ePHEDrine 50 MG/ML 1 ML VIAL ONE (06:54)
[2023-06-30] MEDS ORDERED: SUCCINYLCHOLINE CHLORIDE 200 MG/10 ML VIAL IV ONE (06:54)
[2023-06-30] MEDS ORDERED: GLYCOPYRROLATE 0.2 MG/ML 2 ML VIAL ONE (06:54)
[2023-06-30] MEDS: ROPIVACAINE/EPI/CLONIDINE/KET 50 ML SYRINGE MISCELLANE PRN (07:37)
--- NOTE | 2023-06-30 08:28 | P.ANPRN ---
Procedure Note - Anesthesia - Nerve Block Performed Left Gareth Single Time Out Performed: Yes Date of Procedure: 06/30/23 Procedure Start Time: 06:45 Procedure Stop Time: 06:50 Location of Patient: PreOp Indication: Acute Post-Operative Pain, Requested by Surgeon Sedation Type: Sedate with meaningful contact maintained Preparation: Sterile Prep Position: Supine Needle Types: Pajunk Needle Gauge: 21 Ultrasound used to visualize needle placement: Yes Ultrasound used to observe medication spread: Yes Blood Aspirated: No Pain Paresthesia on Injection Noted: No Resistance on Injection: Normal Image Stored and Saved: Yes Events: Uneventful and Well Tolerated (Ropivacaine 0.5% 20 cc plus dexamethasone 4 mg)
[2023-06-30] MEDS: LACTATED RINGERS 1,000 ML IV ONE (08:38)
--- NOTE | 2023-06-30 09:09 | P.OP ---
Date of Procedure: 06/30/23 Preoperative Diagnosis: 1. Severe left hip osteoarthritis 2. Mild dementia 3. Prior fragility fractures Postoperative Diagnosis: Same Procedure(s) Performed: Left direct anterior total hip arthroplasty Implants: 1. Shasha Trident II Acetabular Cup, Size #54 2. Cooks Accolade C Size # 4 Femoral Stem, High Offset 3. Dual Mobility OD 42 mm, ID 28 mm, +4 mm neck Anesthesia: MI, regional Surgeon: Stefan Enriquez Harness Tier #1: Jodi Palmer Estimated Blood Loss (ml): 200 IV fluids (ml): 800 Pathology: none sent Condition: stable Disposition: PACU Indications for Procedure: I had a long discussion with the patient in the office on the potential risks and complications of an elective total hip replacement through a direct anterior approach. Risks discussed include, but are certainly not limited to, risks from anesthesia, superficial infection requiring local wound care or antibiotics, deep aden-prosthetic joint infection and the treatment required to eradicate infection, intraoperative fracture, postoperative periprosthetic fracture, damage to local blood vessels or nerves particularly the lateral femoral cutaneous nerve, delayed wound healing requiring local wound care or possibly turcios rgical debridement, hip dislocation, leg length discrepancy, soft tissue irritation around the total hip implant such as iliopsoas tendinitis or trochanteric bursitis, wear and osteolysis from the implants, squeaking or audible noises, groin pain, thigh pain, heterotopic ossification, stiffness, aseptic loosening of the implants, dissatisfaction with surgical outcome, need for revision surgery, DVT, PE, swelling of the operative extremity, acute coronary event, stroke, failure to thrive, and possibly loss of life or limb. The patient understands that while these are the most common complications after an elective hip replacement there are certainly other less common complications possible. They were given ample time to ask questions regarding the potential complications of a hip replacement. Following our discussion the patient provided their verbal and written consent to go forward with an elective total hip replacement. Operative Findings: Severe left hip arthritis Description of Procedure: The patient was identified in the preoperative holding area and the correct hip was marked with my initials. I reviewed the procedure and consent with the patient. All of their questions were answered. The patient was then brought back into the operating room by anesthesia. While on the [facility] anesthesia was administered by the anesthesia team. Preoperative antibiotics and tranexamic acid were also given. After the patient was under anesthesia I examined their ankles to determine their preoperative leg length discrepancy. The skin over the anterior aspect of the hip was shaved to remove hair over the site of planned incision. Both feet and ankles were padded with webril and boots for the [place] were applied. The patient was then carefully transferred onto the [place] table. A perineal post was immediately placed. The arms were placed on arm holders and were well-padded. Both boots were secured to the spars on the [place] table. The patient was positioned so that the pelvis was centered over the post. Nonsterile drapes were applied. A timeout was performed identifying the correct patient, operative extremity, and procedure. At this point fluoroscopy was brought in to take preoperative images of the pelvis and operative hip. Using the standing AP pelvis from the office as a template, a comparable image was obtained with fluoroscopy. A metallic bar was used to create a bi-ischial line for use as a reference to leg length adjustments during the procedure. Global offset was also measured on both the operative and nonoperative leg. Fluoroscopy was then brought out and a pre-scrub using a chlorhexidine scrub brush was performed. The operative limb was then prepped and draped in the standard sterile fashion. An anterior longitudinal incision was made lateral and distal to the ASIS. The skin and subcutaneous tissues were incised sharply. The underlying tensor fascia was identified and incised in its midportion. The fascia was dissected free from the underlying muscle and the muscle belly was retracted. A blunt tipped cobra retractor was placed over the superior neck under the muscle fibers of the gluteus minimus. The deep enveloping fascia of the tensor was incised. The anterior leash of vessels were then identified and cauterized. The fascia between the rectus and the capsule was then incised and the pre-capsular fat was excised. A second Cobra was placed inferior to the neck. The interval between the rectus and iliocapsularis and the hip capsule was developed and a retractor was placed carefully over the anterior rim of the acetabulum. A T-shaped anterior capsulotomy was performed. The superior capsular leaflet was left in place in the inferior capsular flap was excised. The Cobra retractors were placed intracapsularly. We then made a femoral neck osteotomy according to preoperative and intraoperative templating and confirmed the level of the osteotomy using fluoroscopic imaging. The femoral head was removed, passed off to the back table, and sized. The superior capsular flap was excised. Retractors were placed circumferentially exposing the acetabulum. We then circumferentially debrided the acetabulum free of labrum and osteophytes. The pulvinar was removed to fully visualize the cotyloid fossa. We then sequentially reamed to achieve peripheral fit and excellent bleeding subchondral bone. The socket was thoroughly irrigated. The acetabular component was impacted into the appropriate position using fluoroscopy to guide version, inclination, and depth of insertion taking care to have a comparable image of the AP pelvis to the standing image taken in the office. An excellent press-fit was achieved and final position was confirmed using fluoroscopy. The press fit was augmented with bony cancellus dome screws. The liner was then impacted into the socket. Attention was then turned to the femur. The remnant dorsal lateral capsule was excised. The short external rotators were visible and protected. A bone hook was used to confirm appropriate translation of the trochanter away from the acetabulum. The leg was then extended and adducted and the bone hook was used to elevate the femur for broaching. On inspection of the patient's proximal femur, they appeared to have poor bone quality so I elected to proceed with cemented fixation of the femoral component. A box osteotome and blunt tipped canal sound was then utilized to gain access to the femoral canal. We then sequentially broached the femur in appropriate anteversion until torsional stability was achieved and the implant was felt to have reached the appropriate size to allow trialing. The neck cut was brought flush to the trial broach with a calcar planar. A trial neck and head were then placed onto the broach and the hip was atraumatically reduced under direct visualization. External rotation to 90 was performed to assess stability. Fluoroscopy was brought in. An AP and lateral fluoroscopic image of the proximal femur was obtained to assess position and fill of the trial broach. An AP of the pelvis was then obtained and matched to the preoperative image taken. A bi-ischial bar was then placed and measurements were taken to assess changes in length and offset. The hip was then carefully dislocated, the proximal femur was exposed, and the trial imp lants were removed. The proximal femur was then prepared for cementing. The canal was thoroughly irrigated with pulsatile lavage to remove blood and marrow contents. A cement restrictor was placed to a depth just distal to the tip of the final implant. Epinephrine-soaked gauze was then packed into the proximal femur. 2 bags of cement were then mixed using a centrifuge and placed into a cement gun. Anesthesia was notified that cementing was about to commence to make sure the patient was appropriately ventilated and hydrated. Once the cement had reached appropriate consistency, the cement gun was used to fill the canal in a retrograde fashion starting at the restrictor. Cement was then pressurized into the canal with a blue tipped stone gang sawyer. The stem was then carefully introduced into the cement taking care to guide the implant into appropriate version. The stem was held in position until the cement had fully set. All extra cement was removed while the cement was hardening. The trunnion was cleansed and the final head was tapped into place to engage the Ramos taper. The acetabulum was irrigated and visualized to be free of debris. The hip was carefully reduced. Stability was checked clinically with external rotation to 90 and there was no evidence of instability. Final fluoroscopic images were taken. The wound was then thoroughly irrigated and soaked with a dilute Betadine rinse for 3 minutes. 3 L of sterile saline was irrigated through the wound using pulsatile lavage. Local anesthetic cocktail was injected into the soft tissues around the surgical field. The wound was then closed in layers. A sterile dressing was placed over the surgical incision. The drapes were taken down and the patient was carefully transferred off of the Shallotte table. Following removal of the boots the leg lengths felt acceptable. The patient was then taken to recovery room having tolerated the procedure well. Jodi Palmer PA-C was required as a skilled dental hygiene administrative assistant due to the complexity of surgery for patient positioning, draping, retraction, closure of wound, and application of dressing. PLAN: The patient can weight-bear as tolerated on the operative extremity. 2 doses of postoperative antibiotics. DVT prophylaxis with aspirin 81 mg twice a day based on preoperative risk stratification. Physical therapy for gait training.
--- NOTE | 2023-06-30 09:13 | FL ---
EXAMINATION TYPE: FL guidance operating room, XR Hip Limited LT Intraoperative/procedural fluoroscopi c services were provided. Total fluoroscopy time is 43 seconds with a total of 9 submitted images to PACS. Please see the operative/procedural note for further details. DAP: [id number] mGym2
[2023-06-30] MEDS ORDERED: HYDROmorphone 0.5 MG/0.5 ML SYRINGE IVP PRN ×3 (09:29)
[2023-06-30] MEDS ORDERED: MAGNESIUM HYDROXIDE 2,400 MG/30 ML CUP PO PRN (09:29)
[2023-06-30] MEDS ORDERED: HYDROcodone/APAP 5-325MG 1 EACH TAB PO PRN (09:29)
[2023-06-30] MEDS ORDERED: NALOXONE 0.4 MG/ML 1 ML VIAL IV PRN (09:29)
[2023-06-30] MEDS: ASPIRIN 81 MG PO SCH (21:28)
[2023-06-30] MEDS: HYDROcodone/APAP 5-325MG 1 EACH TAB PO PRN (21:29)
[2023-06-30] MEDS: SENNOSIDES-DOCUSATE SODIUM 1 EACH TAB PO SCH (21:29)
[2023-07-01 08:48] LABS: Basophils # (A) 0.01 X 10*3/uL (0.00-0.10); Basophils % (A) 0.1 %; Eosinophils # (A) 0 X 10*3/uL (0.04-0.35); Eosinophils % (A) 0 %; HCT 28.9 % (39.6-50.0); HGB 9.8 g/dL (13.0-17.0); Lymphocytes % (A) 4.5 %; MCH 34.4 pg (27.0-32.0); MCHC 33.9 g/dL (32.0-37.0); MCV 101.4 FL (80.0-97.0); Mean Platelet Volume 10.1 FL (9.5-12.2); Monocytes # (A) 0.83 X 10*3/uL (0.20-1.00); Monocytes % (A) 7.5 %; NRBC Per 100 WBC 0 X 10*3/uL (0.00-0.01); Neutrophils % (A) 87.5 %; Platelet Count 197 X 10*3/uL (140-440); RBC 2.85 X 10*6/uL (4.40-5.60); RDW 12.5 % (11.5-14.5); WBC 11.08 X 10*3/uL (4.50-10.00)
[2023-07-01 09:43] LABS: African American GFR (CKD) >90 (>60 ml/min/1.73 sqM); Anion Gap 7 mmol/L; Blood Urea Nitrogen 21 mg/dL (9-20); Calcium 8.5 mg/dL (8.4-10.2); Carbon Dioxide 25 mmol/L (22-30); Chloride 106 mmol/L (98-107); Glucose 112 mg/dL (74-99); Non-African American GFR(CKD) >90 (>60 ml/min/1.73 sqM); Potassium 4.1 mmol/L (3.5-5.1); Sodium 138 mmol/L (137-145)
[2023-07-01] MEDS: DONEPEZIL 5 MG TAB PO SCH (09:59)
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
--- NOTE | 2023-07-01 12:35 | P.PN ---
Subjective Progress Note Date: 07/01/23 No acute events per nursing other than postoperative confusion. The patient seems to be doing well but his is concerned by his delirium and confusion. Patient has minimal pain in his left hip. Objective - Vital Signs Vital signs: Vital Signs Temp 98.1 F 07/01/23 07:41 Pulse 68 07/01/23 07:41 Resp 15 07/01/23 07:41 BP 113/66 07/01/23 07:41 Pulse Ox 94 L 07/01/23 07:41 FiO2 Intake & Output 06/30/23 07/01/23 07/01/23 18:59 06:59 18:59 Intake Total 800 Output Total 200 Balance 600 Weight 70.9 kg Intake: IV 800 Output: Estimated Blood Loss 200 Other: Voiding Method Toilet Toilet # Voids 1 3 - Exam The patient is resting comfortably in bed and eating his lunch. He is confused and does not know the year or where he is. On inspection the left hip his dressing is intact. There is mild swelling and bruising around the dressing. Femoral nerve function is intact. Is able to actively plantarflex and dorsiflex his ankle and his toes. - Labs CBC & Chem 7: 07/01/23 03:45 07/01/23 08:38 Labs: Abnormal Lab Results - Last 24 Hours (Table) 07/01/23 07/01/23 Range/Units 03:45 08:38 WBC 11.08 H (4.50-10.00) X 10*3/uL RBC 2.85 L (4.40-5.60) X 10*6/uL Hgb 9.8 L (13.0-17.0) g/dL Hct 28.9 L (39.6-50.0) % MCV 101.4 H (80.0-97.0) FL MCH 34.4 H (27.0-32.0) pg Neutrophils # 9.70 H (1.80-7.70) X 10*3/uL Lymphocytes # 0.50 L (0.90-5.00) X 10*3/uL Eosinophils # 0 L (0.04-0.35) X 10*3/uL BUN 21 H (9-20) mg/dL Creatinine 0.64 L (0.66-1.25) mg/dL Glucose 112 H (74-99) mg/dL Assessment and Plan Assessment: Postoperative day #1 status post left direct anterior total hip arthroplasty Mild dementia Acute postoperative delirium Plan: 1. Weight bear as tolerated on the operative extremity, up with assistance and a walker 2. DVT prophylaxis with aspirin 81 mg BID 3. 2 doses of post operative antibiotics 4. Leave surgical dressing in place 5. Internal medicine for aden-operative medical management 6. Physical therapy for gait training and mobilization 7. Dispo: I would like to keep the patient overnight due to his postoperative delirium and confusion. We will see how he does tomorrow but he may need discharge to subacute rehab or nursing facility
[2023-07-01] MEDS: ACETAMINOPHEN TAB 325 MG TAB PO PRN (15:31)
[2023-07-02 03:40] VITALS: RESP 16
[2023-07-02 07:39] VITALS: BP 116/66; PULSE 74; TEMP 98.7
--- NOTE | 2023-07-02 09:21 | P.DS ---
Providers Expected date of discharge: 07/02/23 Attending physician: Stefan Enriquez Consults: 06/30/23 09:34 Consult Physician Routine Consulting Provider: Quique Esposito Consult Reason/Comments: Medical management Do you want consulting provider notified?: Yes Primary care physician: Conner Ann - Discharge Diagnosis(es) (1) Degenerative joint disease of left hip Current Visit: Yes Status: Acute (2) Status post total hip replacement, left Current Visit: Yes Status: Acute Hospital Course: This is a 83-year-old male with known history of degenerative arthritis of the left hip. The patient presents for evaluation. After discussion and co nsideration patient elects to proceed with total hip arthroplasty with direct anterior approach. The patient is seen preoperatively by primary care physician and cleared for surgery. Patient is admitted to [facility] on July 01, 2023 for total hip arthroplasty with direct anterior approach. The procedure is performed without complication or sequelae. The patient is doing well postoperatively. Labs and vital signs are stable on day of discharge. On day of discharge patient's hip incision is healing well. There is minimal erythema. There is no drainage noted at this time. There is minimal soft tissue swelling to the hip and thigh. Patient has full foot and ankle motion without difficulty or pain. Neurovascular status to the lower extremity is intact. Patient's confusion has improved today. He has returned to his baseline. Patient is discharged to home in good condition. Please see med rec for accurate list of home medications. Patient Condition at Discharge: Stable Plan - Discharge Summary Discharge Rx Participant: No New Discharge Prescriptions: New Aspirin 81 mg PO BID #60 tab Docusate [Colace] 100 mg PO BID #28 capsule Omeprazole 40 mg PO DAILY #30 cap HYDROcodone/APAP 5-325MG [Bessemer 5-325] 1 - 2 tab PO Q6HR PRN #32 tab PRN Reason: Pain No Action Ibuprofen [Advil] 200 mg PO DIRECTED PRN PRN Reason: Pain Donepezil HCl [Aricept] 5 mg PO QAM Discharge Medication List Donepezil HCl [Aricept] 5 mg PO QAM 09/25/22 [History] Ibuprofen [Advil] 200 mg PO DIRECTED PRN 10/29/22 [History] Aspirin 81 mg PO BID #60 tab 07/01/23 [Rx] Docusate [Colace] 100 mg PO BID #28 capsule 04/16/24 [Rx] HYDROcodone/APAP 5-325MG [Bessemer 5-325] 1 - 2 tab PO Q6HR PRN #32 tab 07/01/23 [Rx] Omeprazole 40 mg PO DAILY #30 cap 07/01/23 [Rx] Follow up Appointment(s)/Referral(s): [facility] [[facility]] - As Needed (Agency will phone 24-48 hours after discharge to arrange a visit. ) Stefan Enriquez MD [Medical Doctor] - 2 Weeks Activity/Diet/Wound Care/Special Instructions: 1. Weight-bear as tolerated on your operative extremity unless instructed otherwise. Use a walker or other assistive device to ambulate. 2. Leave surgical dressing in place. If your dressing becomes saturated with blood, there is drainage, or the dressing becomes loose please contact the office. 3. It is okay to shower with your surgical dressing, but do not submerge in water (no hot tubs, bath's, swimming etc.) 4. Make sure to take her blood clot prevention medication as prescribed (aspirin, Eliquis, Xarelto, and Plavix are commonly prescribed medications for blood clot prevention) 5. While taking B[place]mer or Percocet for pain make sure you're taking a stool softener (Colace) and drink lots of water. 6. Keep all follow-up appointments as scheduled. You will usually be seen in 1-2 weeks following surgery. 7. Please contact the office with any questions or concerns [phone]
--- NOTE | 2023-07-02 11:53 | P.PN ---
Subjective Progress Note Date: 07/02/23 83-year-old male with history of dementia presented to [facility] for elective surgery. He underwent left total hip arthroplasty on 06/29. [facility] has been consulted for medical management. 07/01 Patient was seen and examined. at bedside. No complaints. Looking forward to going home. No bowel movement yet. Urinating freely. General: non toxic, no distress, appears at stated age Derm: warm, dry Head: atraumatic, normocephalic, symmetric Eyes: EOMI, no lid lag, anicteric sclera Mouth: no lip lesion, mucus membranes moist Cardiovascular: S1S2 reg, no murmur Lungs: CTA bilateral, no rhonchi, no rales , no accessory muscle use Abd: + bowel sounds, non tender to palpation Ext: no gross muscle atrophy, no edema, no contractures Neuro: no focal neuro deficits Psych: Alert, oriented, appropriate affect Based on my assessment of this patient, this patient meets a moderate complexity level of care. Patient is POD 2 of left total hip arthroplasty that poses a threat to life or b odily function. Leukocytosis: Reactive from surgery. No signs of active infection. Monitor fever profile. Acute blood loss anemia: Expected result of surgery. CBC pending this morning. Dementia: Donepezil 5 mg PO QD. Frequent re-direction. Advoid sedative and opiate medication. Would recommend repeat CBC in 3 days to be followed up with PCP. CODE STATUS: FULL CODE DVT Prophylaxis: GI Prophylaxis: SCD Designated medical POA if patient is not able to make medical decisions for themselves: I have reviewed the following healthcare consultant notes: Orthopedic Sx. I have reviewed the results of the following tests: I have ordered the following tests: CBC pending. I have discussed the care of this patient with the following independent historian: . I have independently interpreted the following test below: I have discussed the management of this patient with the following physician: Objective - Vital Signs Vital signs: Vital Signs Temp 98.7 F 07/02/23 07:24 Pulse 74 07/02/23 07:24 Resp 16 07/02/23 07:24 BP 116/66 07/02/23 07:24 Pulse Ox 94 L 07/02/23 07:24 FiO2 Intake & Output 07/01/23 07/02/23 07/02/23 18:59 06:59 18:59 Intake Total 120 Balance 120 Intake: Oral 120 Other: Voiding Method Toilet Toilet # Voids 5 1 - Labs CBC & Chem 7: 07/01/23 03:45 07/01/23 08:38
[2023-07-02 13:53] LABS: Basophils # (A) 0.03 X 10*3/uL (0.00-0.10); Basophils % (A) 0.5 %; Eosinophils # (A) 0 X 10*3/uL (0.04-0.35); Eosinophils % (A) 0 %; HCT 26.9 % (39.6-50.0); HGB 8.9 g/dL (13.0-17.0); Lymphocytes # (A) 1.03 X 10*3/uL (0.90-5.00); Lymphocytes % (A) 18.2 %; MCH 34.6 pg (27.0-32.0); MCHC 33.1 g/dL (32.0-37.0); MCV 104.7 FL (80.0-97.0); Mean Platelet Volume 10.4 FL (9.5-12.2); Monocytes # (A) 0.63 X 10*3/uL (0.20-1.00); Monocytes % (A) 11.2 %; NRBC Per 100 WBC 0 X 10*3/uL (0.00-0.01); Neutrophils # (A) 3.95 X 10*3/uL (1.80-7.70); Neutrophils % (A) 69.9 %; Platelet Count 167 X 10*3/uL (140-440); RBC 2.57 X 10*6/uL (4.40-5.60); RDW 12.6 % (11.5-14.5); WBC 5.65 X 10*3/uL (4.50-10.00)
== END 2023-07-02 12:10 | disposition home or self-care (01) ==
LOC: OR 05:52 → 4SSUR 09:15 → OR 07-02 12:10
PROVIDERS: ATTEND Orthopaedic Surgery
DX: M16.12 Unilateral primary osteoarthritis, left hip (principal); D62 Acute posthemorrhagic anemia; D72.829 Elevated white blood cell count, unspecified; F03.B0 Unspecified dementia, moderate, without behavioral disturbance, psychotic disturbance, mood disturbance, and anxiety; F05 Delirium due to known physiological condition; G89.18 Other acute postprocedural pain; G93.41 Metabolic encephalopathy; I48.91 Unspecified atrial fibrillation; Z79.82 Long term (current) use of aspirin; Z79.899 Other long term (current) drug therapy; Z85.46 Personal history of malignant neoplasm of prostate; Z87.891 Personal history of nicotine dependence
CPT/HCPCS: 94760; 97116; 97162; 97535; 97166; 64447; 80048; 85025 ×2; 73501; 27130; C1776; C1713; J2250; J0171; J1100; J0690 ×2; J2405; J3490; J1885